=== PATIENT | male | born 1995 | race Caucasian/White ===

== ENCOUNTER 2020-11-29 22:47 | Emergency (ER) | payer OTHER, SELFPAY ==
[2020-11-29 23:16] VITALS: BP 106/73; PULSE 95; RESP 18; TEMP 37.9; O2SAT 96; BMI 34.7
--- NOTE | 2020-11-29 23:32 | ED_ITS ---
HPI - General Adult General Chief complaint: General Medical Stated complaint: flu like Time Seen by Provider: 11/29/20 23:09 Source: patient Mode of arrival: ambulatory Limitations: no limitations History of Present Illness HPI narrative: Patient comes to emergency room complaining of pain with urination, suprapubic pain. Patient states he has not seen any blood in the urine, complaining of chills and diffuse body aches. Patient denies back pain or flank pain, no nausea vomiting or diarrhea complaint: Suprapubic pain, dysuria Related Data Previous Rx's Medication Instructions Recorded phenazopyridine 100 mg PO TID 3 Days #9 tab 11/30/20 Allergies Allergy/AdvReac Type Severity Reaction Status Date / Time No Known Allergies Allergy Unverified 07/20/20 16:25 [No Known Allergies*] Review of Systems Review of Systems: Constitutional : Patient complaining of myalgias, chills ENT/Mouth : No Hearing loss, No Ear Pain, No Nasal Congestion, No Sinus Pain, No Hoarseness, No sore throat, No Rhinorrhea, No Swallowing Difficulty Eyes: No Eye Pain, No Swelling, No Redness, No Foreign Body, No Discharge, No Vision Changes Cardiovascular : No Chest Pain, No SOB, No Dyspnea on Exertion, No Orthopnea, No Edema, No Palpitations Respiratory : No Cough, No Sputum, No Wheezing, No Smoke Exposure, No Dyspnea Gastrointestinal : No Nausea, No Vomiting, No Diarrhea, No Constipation, mild suprapubic pain, No Hematochezia, No Melena Genitourinary : Denies hematuria, complaining of dysuria Musculoskeletal : No joint pain, complaining of Myalgias, No Joint Swelling Skin : No Skin Lesions, No rash Neuro : No Weakness, No Numbness, No Paresthesias, No Loss of Consciousness, No Dizziness, No Headache Psych : No Anxiety/Panic, No Depression, No SI/HI/AH/VH, No Social Issues, Heme/Lymph: No Bruising, No Bleeding,No Lymphadenopathy Endocrine : No Polyuria, No Polydipsia, No Temperature Intolerance [facility] Past Medical History Medical History (Updated 11/30/20 @ 02:25 by Andria Diamond MD) No known health problems Social History Social History Advance Directives: No Physical Exam Vital Signs: Vital Signs: Last Vital Signs Temp 100.2 F 01/27/21 23:16 Pulse 95 11/29/20 23:16 Resp 18 11/29/20 23:16 BP 106/73 11/29/20 23:16 Pulse Ox 96 11/29/20 23:16 Body Mass Index 34.7 Course Course Course Narrative: Patient's urinalysis shows no UTI. Patient has an elevated white blood cell count, slightly raised from baseline of 12, patient has no respiratory symptoms, sepsis is not suspected. Patient states that he already had an appendectomy a few years ago. CT scan is unremarkable Gonorrhea and chlamydia PCR pending. ddx cystitis Patient states that he is monogamous with his , is not concerned for sexually transmitted diseases. Declined empiric treatment Medical Decision Making Lab Data Result diagrams: 11/29/20 23:59 11/29/20 23:59 Labs: Lab Results 11/29/20 11/29/20 11/29/20 Range/Units 23:59 23:59 Unknown WBC 14.4 H (4.8-10.8) X10*3/uL RBC 4.83 (4.60-5.80) X10*6/uL Hgb 13.4 L (14.0-18.0) g/dl Hct 41.1 L (42-52) % MCV 85.1 (80-98) fL MCH 27.7 (27.0-33.0) pg MCHC 32.6 (31.0-36.0) g/dl RDW 13.3 (11.0-16.0) % Plt Count 349 (160-400) X10*3/uL MPV 9.8 (9.4-12.4) fL Immature Gran % (Auto) 0.3 (0.0-0.4) % Neut % (Auto) 75.0 H (45-73) % Lymph % (Auto) 16.5 L (20-40) % [place] % (Auto) 7.6 (2-11) % Eos % (Auto) 0.1 (0-4) % Baso % (Auto) 0.5 (0-2) % Lymph # (Auto) 2.4 (1.2-4.9) X10*3/uL [place] # (Auto) 1.1 (0.1-1.2) X10*3/uL Eos # (Auto) 0.0 (0.0-0.4) X10*3/uL Baso # (Auto) 0.1 (0.0-0.2) X10*3/uL Abs Immat Gran (auto) 0.05 H (0.00-0.03) X10*3/uL Absolute Neuts (auto) 10.8 H (2.0-8.3) X10*3/uL Absolute Nucleated RBC 0.000 (0.0-0.012) X10*3/uL Nucleated RBC % (auto) 0.0 (0.0-0.2) /100WBC Sodium 138 (135-145) mmol/L Potassium 3.9 (3.3-5.1) mmol/l Chloride 102 (96-108) mmol/L Carbon Dioxide 24 (22-29) mmol/L Anion Gap 16 (12-20) BUN 11 (9-16) mg/dL Creatinine 0.80 (0.5-1.4) mg/dL Estim Creat Clear Calc 154.3 Estimated GFR > 60 Random Glucose 98 (60-115) mg/dL Calcium 8.8 (8.4-10.2) mg/dL Urine Color YELLOW Urine Appearance CLEAR Urine pH 6.0 (5.0-8.0) Ur Specific [place] 1.025 (1.005-1.025) Urine Protein NEG (NEG-TRACE) MG/DL Urine Glucose (UA) NEG (NEG) MG/DL Urine Ketones 5 (NEG) MG/DL Urine Blood NEG (NEG) Urine Nitrite NEG (NEG) Ur Leukocyte Esterase NEG (NEG) Imaging Data CT scan - abdomen: Radiologist's impression: FINDINGS: LUNG BASES: The visualized lung bases are unremarkable. LIVER, GALLBLADDER, AND BILIARY TREE: The liver is normal in size, shape, and attenuation. No focal hepatic lesion or biliary ductal dilatation is present. The gallbladder is unremarkable. PANCREAS: Unremarkable. SPLEEN: Unremarkable. ADRENAL GLANDS: Unremarkable. KIDNEYS AND URETERS: The kidneys are normal in size, shape, and attenuation. No hydronephrosis, hydroureter, or obstructing calculi seen. No perinephric stranding. BLADDER: Mildly distended and grossly unremarkable. GASTROINTESTINAL TRACT: The small and large bowel are unremarkable. Patient is status post appendectomy. No free fluid or free air is seen. ABDOMINAL WALL: No significant hernia is appreciated. Gynecomastia is noted. LYMPH NODES: Normal. VASCULAR: Unremarkable. PELVIC VISCERA: Unremarkable. OSSEOUS STRUCTURES: Unremarkable. CT/CT abdomen pelvis w con IMPRESSION: No acute findings identified in the abdomen/pelvis. Discharge Plan Discharge Clinical Impression: Acute suprapubic pain Patient Disposition: Home, Self-Care Instructions: Dysuria (ED) Additional Instructions: You were tested for COVID-19. Please wait for your results until your return to work. If positive, you need to quarantine for 14 days. Please follow-up with your primary care physician tomorrow. If you have any worsening or new s ymptoms, please return to the emergency room or call 911 Prescriptions: New phenazopyridine 100 mg tablet 100 mg PO TID 3 Days Qty: 9 RF: 0 Stand Alone Forms: Work/School Release
[2020-11-30 00:05] LABS: MANUAL DIFF FLAG NO
[2020-11-30] MEDS: Acetaminophen 325 MG TABLET 650 MG PO (00:08)
[2020-11-30 00:09] LABS: Glucose Urine UA NEG (NEG); Leukocyte Esterase Urine NEG (NEG); Nitrite Urine NEG (NEG); Specific Gravity - Urine 1.025 (1.005-1.025); Urine Blood NEG (NEG); Urine Ketones 5 MG/DL (NEG); Urine Protein NEG (NEG-TRACE)
[2020-11-30 00:09] LABS: Basophils Absolute Auto 0.1 X10*3/uL (0.0-0.2); Basophils Percent Auto 0.5 % (0-2); Eosinophils Percent Auto 0.1 % (0-4); Hematocrit 41.1 % (42-52); Hemoglobin 13.4 g/dl (14.0-18.0); Imm Gran Abs Auto 0.05 X10*3/uL (0.00-0.03); Imm Gran Pct Auto 0.3 % (0.0-0.4); Lymphocytes Absolute Auto 2.4 X10*3/uL (1.2-4.9); Lymphocytes Percent Auto 16.5 % (20-40); Mean Corpuscular HGB Conc 32.6 g/dl (31.0-36.0); Mean Corpuscular Hemoglobin 27.7 pg (27.0-33.0); Mean Corpuscular Volume 85.1 fL (80-98); Mean Platelet Volume 9.8 fL (9.4-12.4); Monocytes Absolute Auto 1.1 X10*3/uL (0.1-1.2); Monocytes Percent Auto 7.6 % (2-11); Neutrophils Absolute Auto 10.8 X10*3/uL (2.0-8.3); Platelet Count 349 X10*3/uL (160-400); Red Blood Count 4.83 X10*6/uL (4.60-5.80); Red Cell Distribution Width 13.3 % (11.0-16.0); White Blood Count 14.4 X10*3/uL (4.8-10.8)
[2020-11-30 00:11] LABS: Appearance Urine CLEAR; Color Urine YELLOW
--- NOTE | 2020-11-30 00:33 | CT_ITS ---
EXAMINATION: CT ABDOMEN AND PELVIS WITH CONTRAST CLINICAL INFORMATION: Suprapubic pain COMPARISON: 05/11/2020 TECHNIQUE: Multidetector volumetric images were obtained from the superior aspect of the liver through the pubic symphysis following administration 85 mL of Omnipaque 350 intravenous contrast. Sagittal and coronal reformatted images were obtained on the technologist's workstation. Oral contrast: No This CT examination was performed using dose optimization techniques as appropriate, variously including the following: *Automated exposure control *Adjustment of mA and/or kV according to patient size (this includes techniques or standardized protocols for targeted exams where dose is matched to indication/reason for exam; i.e. extremities or head) *Use of iterative reconstruction technique DLP: 806 mGy-cm FINDINGS: LUNG BASES: The visualized lung bases are unremarkable. LIVER, GALLBLADDER, AND BILIARY TREE: The liver is normal in size, shape, and attenuation. No focal hepatic lesion or biliary ductal dilatation is present. The gallbladder is unremarkable. PANCREAS: Unremarkable. SPLEEN: Unremarkable. ADRENAL GLANDS: Unremarkable. KIDNEYS AND URETERS: The kidneys are normal in size, shape, and attenuation. No hydronephrosis, hydroureter, or obstructing calculi seen. No perinephric stranding. BLADDER: Mildly distended and grossly unremarkable. GASTROINTESTINAL TRACT: The small and large bowel are unremarkable. Patient is status post appendectomy. No free fluid or free air is seen. ABDOMINAL WALL: No significant hernia is appreciated. Gynecomastia is noted. LYMPH NODES: Normal. VASCULAR: Unremarkable. PELVIC VISCERA: Unremarkable. OSSEOUS STRUCTURES: Unremarkable. CT/CT abdomen pelvis w con IMPRESSION: No acute findings identified in the abdomen/pelvis.
[2020-11-30 00:39] LABS: Anion Gap 16 (12-20); Blood Urea Nitrogen 11 mg/dL (9-16); Calcium 8.8 mg/dL (8.4-10.2); Carbon Dioxide 24 mmol/L (22-29); Chloride 102 mmol/L (96-108); Creatinine Clr Calc Pharmacy 154.3; Estimated Glomerular Filt Rate > 60; Glucose Random 98 mg/dL (60-115); Potassium 3.9 mmol/l (3.3-5.1); Sodium 138 mmol/L (135-145)
[2020-11-30 02:00] VITALS: BP 121/75; PULSE 73; RESP 16; TEMP 37; O2SAT 96
[2020-11-30] MEDS: iohexoL 350 MG/ML 100 ML INFUS..BTL 85 ML IV (02:09)
[2020-11-30 03:47] LABS: Influenza A PCR NEGATIVE (Negative); Influenza B PCR NEGATIVE (Negative); Resp Syncy Virus RNA Qual PCR NEGATIVE (Negative); SARS COV2 PCR INHOUSE NEGATIVE (Negative)
[2020-12-02 01:57] LABS: C. trachomatis RNA TMA NOT DETECTED (NOT DETECTED); N. gonorrhoeae RNA TMA NOT DETECTED (NOT DETECTED)
== END 2020-11-30 03:07 | disposition home or self-care (01) ==
PROVIDERS: Emergency Provider Emergency Medicine
DX: R30.0 Dysuria (principal); R10.2 Pelvic and perineal pain; Z79.899 Other long term (current) drug therapy; Z20.822 Contact with and (suspected) exposure to COVID-19
CPT/HCPCS: 0241U; 36415; 74177; 80048; 81003; 85025; 87491; 87591; 99284; Q9967

== ENCOUNTER 2021-10-05 06:27 | Emergency (ER) | payer OTHER, SELFPAY ==
--- NOTE | ~2021-10-05 | XR_ITS ---
EXAMINATION: XR ANKLE, RIGHT CLINICAL INFORMATION: Rolled ankle with lateral malleolar pain and swelling. COMPARISON: None TECHNIQUE: AP, lateral, and mortise views of the right ankle. FINDINGS: There is mild lateral malleolar soft tissue swelling. No visible acute fracture, dislocation or subluxation seen. The ankle mortise and subtalar joints are normal. XR/XR ankle RT min 3V IMPRESSION: Unremarkable right ankle exam.
[2021-10-05 07:15] VITALS: BP 117/72; PULSE 74; RESP 18; TEMP 36.6; O2SAT 94
[2021-10-05 07:19] VITALS: BP 117/72; PULSE 74; RESP 18; TEMP 37.1; O2SAT 94; BMI 32.3
--- NOTE | 2021-10-05 07:20 | ED_ITS ---
HPI - Extremity Injury (Lower) General Chief Complaint: Extremity Injury, Lower Stated Complaint: Ankle inj Time Seen by Provider: 10/05/21 07:20 Source: patient Mode of arrival: ambulatory Limitations: no limitations History of Present Illness HPI Narrative: One hour ago patient rolled his ankle complaint: ankle injury Onset (ago): minute(s) Injury: Right: ankle Place: home Severity: mild Associated symptoms: snap/pop sensation Related Data Previous Rx's Medication Instructions Recorded phenazopyridine 100 mg tablet 100 mg PO TID 3 Days #9 tab 11/30/20 Allergies Allergy/AdvReac Type Severity Reaction Status Date / Time No Known Allergies Allergy Unverified 07/20/20 16:25 [No Known Allergies*] Review of Systems Constitutional: Constitutional: Reports no additional constitutional complaints Eyes: Eyes: Reports no additional eye complaints ENT: Denies dizziness Cardiovascular: Cardiovascular: Reports no additional cardiovascular complaints Respiratory: Respiratory: Reports as per HPI Gastrointestinal: Gastrointestinal: Reports no additional gastrointestinal complaints Musculoskeletal: Musculoskeletal: Reports no additional musculoskeletal complaints Integumentary/Breasts: Skin/Breast: Denies rash Neurologic: Reports system reviewed and no additional complaints, except as documented, Denies dizziness and Denies Sensory deficit (Neuro) Psychiatric: Psychiatric: Denies anxiety [facility] Past Medical History Medical History (Updated 10/05/21 @ 08:23 by Fabio Bianchi MD) No known health problems Social History Social History Advance Directives: No Physical Exam Vital Signs: Vital Signs: Last Vital Signs Temp 98.7 F 10/05/21 07:19 Pulse 74 10/05/21 07:19 Resp 18 10/05/21 07:19 BP 117/72 10/05/21 07:19 Pulse Ox 94 10/05/21 07:19 BMI result Body Mass Index 32.3 Const: General: healthy appearing Nutritional Appearance: average body habitus Orientation/consciousness: oriented to person and patient oriented x3 Limitations: no limitations HENMT: Head: Yes normal to inspection Ears: external ears normal General nose exam: Normal external nose present Mouth: Normal oral and palatal mucosa present and oropharynx normal Throat: Yes posterior oropharynx normal Eyes: General: appearance normal, both eyes and all related structures Neck: Other: supple Neck: Yes normal visual inspection Chest: Chest palpation & inspection: normal inspection of the chest Resp: Auscultation: clear to auscultation bilaterally Cardio: Jugular venous distension: no JVD Rate: regular rate Rhythm: regular rhythm Heart sounds: S1 normal heart sound present and S2 normal heart sound present GI: Inspection: Yes normal to inspection Palpation (GI): Soft to palpation, nontender and No hepatosplenomegaly present Auscultation: normal bowel sounds : General: Yes no CVA tenderness Back/Spine/Pelvis: Back: no CVA tenderness Skin: General skin exam: no rashes or lesions noted Neuro: General: oriented to person and patient oriented x3 Cranial nerves: Yes CN's II-XII intact bilaterally Motor exam (neuro): 5/5 motor strength present throughout Sensory Exam: No Sensory deficit (Neuro) Extrem: Other: right lateral malleolus with swelling, pain and ecchymosis. Good DP pulses Psych: Appearance: grossly normal Course Reevaluation(s) Reevaluation #1: no fracture will apply air splint Time: 08:21 Discharge Plan Discharge Clinical Impression: Ankle sprain and strain Patient Disposition: Home, Self-Care Instructions: Ankle Sprain (ED) Additional Instructions: ice 20 minutes on and off, tylenol or motrin for pain Prescriptions: No Action phenazopyridine 100 mg tablet 100 mg PO TID 3 Days Qty: 9 RF: 0 Referrals: Physician,None [Primary Care Provider] - 10 days
== END 2021-10-05 08:32 | disposition home or self-care (01) ==
PROVIDERS: Emergency Provider Emergency Medicine
DX: S93.401A Sprain of unspecified ligament of right ankle, initial encounter (principal); S96.911A Strain of unspecified muscle and tendon at ankle and foot level, right foot, initial encounter; X58.XXXA Exposure to other specified factors, initial encounter; Y93.9 Activity, unspecified; Y92.9 Unspecified place or not applicable; Y99.9 Unspecified external cause status
CPT/HCPCS: 73610; 99283

== ENCOUNTER 2022-06-08 11:52 | Emergency (ER) | payer BC, SELFPAY ==
[2022-06-08 11:55] VITALS: BP 119/72; PULSE 85; RESP 14; TEMP 36.8; O2SAT 96; BMI 33.5
--- NOTE | 2022-06-08 13:24 | ED.GENADULT ---
HPI - General Adult General Chief complaint: Skin/Abscess/Foreign Body Stated complaint: ? L Leg Cellulitis Time Seen by Provider: 06/08/22 13:20 History of Present Illness HPI narrative: Patient complains of left foot redness and pain, he did get bitten by some insect several days ago and the left foot has become increasingly red and painful Related Data Previous Rx's Medication Instructions Recorded phenazopyridine 100 mg tablet 100 mg PO TID 3 days #9 tabs 11/30/20 cephalexin 500 mg tablet 500 mg PO QID 7 days #28 tabs 06/08/22 Allergies Allergy/AdvReac Type Severity Reaction Status Date / Time No Known Allergies Allergy Unverified 07/20/20 16:25 [No Known Allergies*] Review of Systems Review of Systems: Positive for left foot redness and pain Negative no fever no chills no dizziness no weakness no fainting no feeling faint no headache no neck pain no chest pain no shortness of breath no abdominal pain no nausea or vomiting no other rash no joint swelling no difficulty ambulating no numbness weakness or tingling Yes all other systems are reviewed and are negative PMFSH Past Medical History Source: nursing notes reviewed Medical History (Updated 06/08/22 @ 14:06 by RANDY Wahl) No known health problems Social History Social History Advance Directives: No Advance Directives Information Provided: No Physical Exam ED Vital Signs: Vital Signs - 24 hr 06/08/22 11:55 Temperature 98.2 F Pulse Rate 85 Respiratory Rate 14 Blood Pressure 119/72 Pulse Oximetry 96 Oxygen Delivery Method Room Air BMI result Body Mass Index 33.5 General appearance no acute distress Head is normocephalic atraumatic Neck is supple Respiratory no distress Extremities full range of motion x4 Left leg exam the dorsal left foot and ankle are read with mild swelling but no fluctuance, there is no obvious wound or break in the skin there is no discharge there is full range of motion in the ankle the foot and the toes, patient can walk with a mild limp, neurovascular intact distal with good sensation and all motor function normal Other extremities normal Skin no other rashes Neuro no focal motor sensory deficits Course Course Course Narrative: Patient with cellulitis of the dorsum of his foot is treated with Keflex given a tetanus shot as he attributes that to insect bites, a white count of 12.9 was noted but sepsis very unlikely as vitals are normal and patient is otherwise well-appearing with no evidence of joint infection or systemic disease Medical Decision Making Lab Data Result diagrams: 06/08/22 13:23 06/08/22 13:23 Labs: Lab Results 06/08/22 06/08/22 Range/Units 13:23 13:23 WBC 12.5 H (4.8-10.8) X10*3/uL RBC 4.82 (4.60-5.80) X10*6/uL Hgb 13.3 L (14.0-18.0) g/dl Hct 41.3 L (42.0-52.0) % MCV 85.7 (80.0-98.0) fL MCH 27.6 (27.0-33.0) pg MCHC 32.2 (31.0-36.0) g/dl RDW 13.0 (11.0-16.0) % Plt Count 343 (160-400) X10*3/uL MPV 9.7 (9.4-12.4) fL Immature Gran % (Auto) 0.3 (0.0-0.4) % Neut % (Auto) 69.6 (45-73) % Lymph % (Auto) 17.3 L (20-40) % [place] % (Auto) 11.0 (2-11) % Eos % (Auto) 1.2 (0-4) % Baso % (Auto) 0.6 (0-2) % Lymph # (Auto) 2.2 (1.2-4.9) X10*3/uL [place] # (Auto) 1.4 H (0.1-1.2) X10*3/uL Eos # (Auto) 0.2 (0.0-0.4) X10*3/uL Baso # (Auto) 0.1 (0.0-0.2) X10*3/uL Abs Immat Gran (auto) 0.04 H (0.00-0.03) X10*3/uL Absolute Neuts (auto) 8.7 H (2.0-8.3) x10*3/uL Absolute Nucleated RBC 0.000 (0.0-0.012) X10*3/uL Nucleated RBC % (auto) 0.0 (0.0-0.2) /100WBC Sodium 140 (135-145) mmol/L Potassium 4.1 (3.3-5.1) mmol/L Chloride 104 (96-108) mmol/L Carbon Dioxide 26 (22-29) mmol/L Anion Gap 14 (12-20) BUN 9 (9-16) mg/dL Creatinine 0.73 (0.5-1.4) mg/dL Estim Creat Clear Calc 164.8 Estimated GFR > 60 Random Glucose 95 (60-115) mg/dL Calcium 8.8 (8.4-10.2) mg/dL Total Bilirubin 0.7 (0.0-1.0) mg/dL AST 16 (5-37) U/L ALT 14 (0-40) U/L Alkaline Phosphatase 71 (39-117) U/L Total Protein 8.0 (6.5-8.0) g/dL Albumin 4.2 (3.5-5.0) g/dL Discharge Plan Discharge Clinical Impression: Cellulitis Patient Disposition: Home, Self-Care Additional Instructions: We are treating with Keflex antibiotic for a skin infection on her left foot It should have improvement with in 2-3 days Return to the ER in 2-3 days if not improved Return to the ER any time for spreading redness, worse pain and swelling, fever, any sign of spreading infection or any worse condition or concerns You got a tetanus shot today Prescriptions: New cephalexin 500 mg tablet 500 mg PO QID 7 Days Qty: 28 0RF No Action phenazopyridine 100 mg tablet 100 mg PO TID 3 Days Qty: 9 0RF
[2022-06-08 13:28] LABS: MANUAL DIFF FLAG NO
[2022-06-08 13:29] LABS: Basophils Absolute Auto 0.1 X10*3/uL (0.0-0.2); Basophils Percent Auto 0.6 % (0-2); Eosinophils Absolute Auto 0.2 X10*3/uL (0.0-0.4); Eosinophils Percent Auto 1.2 % (0-4); Hematocrit 41.3 % (42.0-52.0); Hemoglobin 13.3 g/dl (14.0-18.0); Imm Gran Abs Auto 0.04 X10*3/uL (0.00-0.03); Imm Gran Pct Auto 0.3 % (0.0-0.4); Lymphocytes Absolute Auto 2.2 X10*3/uL (1.2-4.9); Lymphocytes Percent Auto 17.3 % (20-40); Mean Corpuscular HGB Conc 32.2 g/dl (31.0-36.0); Mean Corpuscular Hemoglobin 27.6 pg (27.0-33.0); Mean Corpuscular Volume 85.7 fL (80.0-98.0); Mean Platelet Volume 9.7 fL (9.4-12.4); Monocytes Absolute Auto 1.4 X10*3/uL (0.1-1.2); Neutrophils Absolute Auto 8.7 x10*3/uL (2.0-8.3); Neutrophils Percent Auto 69.6 % (45-73); Platelet Count 343 X10*3/uL (160-400); Red Blood Count 4.82 X10*6/uL (4.60-5.80); White Blood Count 12.5 X10*3/uL (4.8-10.8)
[2022-06-08] MEDS: Diphth,Pertus(ACell),Tet Adult 0.5 ML SYRINGE IM (13:34)
[2022-06-08] MEDS: cephALEXin 500 MG CAPSULE PO (13:34)
[2022-06-08 13:47] LABS: Alanine Aminotransferase 14 U/L (0-40); Albumin Level 4.2 g/dL (3.5-5.0); Alkaline Phosphatase 71 U/L (39-117); Anion Gap 14 (12-20); Aspartate Amino Transferase 16 U/L (5-37); Bilirubin Total 0.7 mg/dL (0.0-1.0); Blood Urea Nitrogen 9 mg/dL (9-16); Calcium 8.8 mg/dL (8.4-10.2); Carbon Dioxide 26 mmol/L (22-29); Chloride 104 mmol/L (96-108); Creatinine Clr Calc Pharmacy 164.8; Estimated Glomerular Filt Rate > 60; Glucose Random 95 mg/dL (60-115); Potassium 4.1 mmol/L (3.3-5.1); Sodium 140 mmol/L (135-145)
== END 2022-06-08 14:16 | disposition home or self-care (01) ==
PROVIDERS: Emergency Provider Emergency Medicine
DX: L03.116 Cellulitis of left lower limb (principal); M79.672 Pain in left foot
CPT/HCPCS: 36415; 80053; 85025; 90471; 90715; 96372; 99282; 99284

== ENCOUNTER 2022-06-11 17:55 | Emergency (ER) | payer BC, MEDICAID, SELFPAY ==
--- NOTE | ~2022-06-11 | XR_ITS ---
EXAMINATION: XR FOOT, LEFT CLINICAL INFORMATION: Pain COMPARISON: None TECHNIQUE: AP, lateral, and oblique views of the left foot. FINDINGS: There is swelling on the dorsum of the foot. Osseous structures appear unremarkable without evidence of fracture or dislocation XR/XR foot LT min 3V IMPRESSION: * Soft tissue swelling without osseous abnormality.
--- NOTE | ~2022-06-11 | US_ITS ---
EXAMINATION: US VENOUS ULTRASOUND WITH DOPPLER LOWER EXTREMITY, LEFT CLINICAL INFORMATION: Left lower extremity pain and swelling COMPARISON: None TECHNIQUE: Ultrasound of the deep veins is performed from the hip to the calf with compression sonography and color and pulse Doppler assessment. Spectral analysis with color-flow imaging is performed. FINDINGS: There is normal venous compression and respiratory variation and augmented flow. The visualized common femoral vein, superficial femoral vein, profunda femoral vein, popliteal vein, and the trifurcation region shows no evidence of deep venous thrombosis. There is no significant popliteal fossa cyst. Some normal-appearing left inguinal nodes are present the largest 1.5 cm. Ankle edema is present. The contralateral right common femoral vein appears normal. If the patient's symptoms persist, followup ultrasound in 5 days 7 days might be of value to exclude proximal propagation from a non-visualized calf vein. US/US venous duplex LE IMPRESSION: No DVT demonstrated in the left lower extremity.
[2022-06-11 19:44] VITALS: BP 105/71; PULSE 66; RESP 16; TEMP 36.8; O2SAT 98; BMI 33.4
[2022-06-11 20:03] LABS: MANUAL DIFF FLAG NO
[2022-06-11 20:05] LABS: Basophils Absolute Auto 0.1 X10*3/uL (0.0-0.2); Basophils Percent Auto 0.7 % (0-2); Eosinophils Absolute Auto 0.4 X10*3/uL (0.0-0.4); Eosinophils Percent Auto 3.5 % (0-4); Hematocrit 40.9 % (42.0-52.0); Hemoglobin 13.2 g/dl (14.0-18.0); Imm Gran Abs Auto 0.04 X10*3/uL (0.00-0.03); Imm Gran Pct Auto 0.4 % (0.0-0.4); Lymphocytes Absolute Auto 2.8 X10*3/uL (1.2-4.9); Lymphocytes Percent Auto 26.2 % (20-40); Mean Corpuscular HGB Conc 32.3 g/dl (31.0-36.0); Mean Corpuscular Hemoglobin 27.8 pg (27.0-33.0); Mean Corpuscular Volume 86.3 fL (80.0-98.0); Mean Platelet Volume 9.7 fL (9.4-12.4); Monocytes Absolute Auto 1.2 X10*3/uL (0.1-1.2); Monocytes Percent Auto 10.9 % (2-11); Neutrophils Absolute Auto 6.3 x10*3/uL (2.0-8.3); Neutrophils Percent Auto 58.3 % (45-73); Platelet Count 386 X10*3/uL (160-400); Red Blood Count 4.74 X10*6/uL (4.60-5.80); Red Cell Distribution Width 12.9 % (11.0-16.0); White Blood Count 10.8 X10*3/uL (4.8-10.8)
[2022-06-11 20:16] LABS: Lactic Acid 0.8 mmol/L (0.5-2.0)
[2022-06-11 20:20] LABS: Alanine Aminotransferase 23 U/L (0-40); Albumin Level 4.2 g/dL (3.5-5.0); Alkaline Phosphatase 85 U/L (39-117); Anion Gap 15 (12-20); Aspartate Amino Transferase 22 U/L (5-37); Bilirubin Total 0.3 mg/dL (0.0-1.0); Blood Urea Nitrogen 14 mg/dL (9-16); Calcium 9.1 mg/dL (8.4-10.2); Carbon Dioxide 27 mmol/L (22-29); Chloride 103 mmol/L (96-108); Estimated Glomerular Filt Rate > 60; Glucose Random 95 mg/dL (60-115); Sodium 141 mmol/L (135-145)
--- NOTE | 2022-06-11 22:41 | ED_ITS ---
HPI - Skin/Abscess/Foreign Bdy General Chief complaint: Extremity Problem Stated complaint: ? Left Foot Infection Time Seen by Provider: 06/11/22 22:20 Source: patient and old records reviewed Mode of arrival: ambulatory Limitations: no limitations History of Present Illness HPI narrative: 26 yo male no sig PMH notes he was camping in [facility] and had 3 mosquito bites on his left ankle/foot area - the foot swelled he was seen on 06/08 and started on cephalexin he now notes the foot is more swollen and itchy. There is no redness he has no fevers at home. MD complaint: insect bite/sting Onset (ago): day(s) (5) Tetanus up to date: yes Location: LLE and L foot Severity: mild Quality: dull, constant and pruritic Pain Consistency: constant Relieving factors: immobilization Exacerbating factors: palpation Context: recent camping (no tick bites, mosquito bites) Associated symptoms: other (leg swelling) Treatments prior to arrival: antibiotic Related Data Previous Rx's Medication Instructions Recorded phenazopyridine 100 mg tablet 100 mg PO TID 3 days #9 tabs 11/30/20 cephalexin 500 mg tablet 500 mg PO QID 7 days #28 tabs 06/08/22 doxycycline hyclate 100 mg tablet 100 mg PO BID 7 days #14 tabs 06/12/22 famotidine 20 mg tablet (Pepcid) 20 mg PO DAILY PRN abdominal 06/12/22 discomfort #30 tabs prednisone 20 mg tablet 40 mg PO DAILY 5 days #10 tabs 06/12/22 Allergies Allergy/AdvReac Type Severity Reaction Status Date / Time No Known Allergies Allergy Unverified 07/20/20 16:25 [No Known Allergies*] Review of Systems Review of Systems: Constitutional : No Fever, No Chills ENT/Mouth : No sore throat, No Rhinorrhea Eyes: No Eye Pain, No Swelling, No Redness Cardiovascular : No Chest Pain, No SOB Respiratory : No Cough, No Sputum Gastrointestinal : No Nausea, No Vomiting, No Diarrhea, No abdominal Pain Genitourinary : No Dysuria, No Hematuria Musculoskeletal : No joint pain, No Myalgias, No Joint Swelling Skin : No Skin Lesions, positive skin rash, pos leg and foot swelling Neuro : No Weakness, No Numbness, No Headache Psych : No Anxiety, No Depression Heme/Lymph: No Bruising, No Bleeding,No Lymphadenopathy Endocrine : No Polyuria, No Polydipsia All other systems reviewed and are negative [facility] Past Medical History Attestation statement: The following information was validated with the patient. Medical History No known health problems Social History Social History Alcohol intake: never Patient Tobacco Use Status: Never used Tobacco Use of substances other than those prescribed or required for medical reasons: No Advance Directives: No Advance Directives Information Provided: No Physical Exam Vital Signs: Vital Signs: Last Vital Signs Temp 98.7 F 06/12/22 00:00 Pulse 70 06/12/22 00:00 Resp 17 06/12/22 00:00 BP 102/75 06/12/22 00:00 Pulse Ox 96 06/12/22 00:00 O2 Del Method 06/12/22 00:00 BMI result Body Mass Index 33.4 Appearance: Alert. Oriented X3. No acute distress. Eyes: Pupils equal, round and reactive to light. ENT: Pharynx normal. Neck: Normal inspection. Neck supple. CVS: Normal heart rate and rhythm. Pulses normal. Respiratory: No respiratory distress. Breath sounds normal. Abdomen: Soft and nontender. Skin: Skin warm and dry. Normal skin color. Extremities: L foot and up to mid calf not red not hot but boggy and 2+ pitting edema ttp over dorsum of foot, ecchymosis noted, seems allergic not cellulitic to me, distal NV intact bounding pulses Neuro: Oriented X 3. No motor deficit. No sensory deficit. Course Course Course Narrative: negative workup stable for DC will place on doxy as well in case lymph node related to infection MDM - Skin/Abscess/Foreign Bdy MDM Narrative Medical decision making narrative: 26 yo male here with L foot pain and swelling post mosquito bites it looks more allergic not cellulitic with no WBC count no fevers no warmth no erythema given calf swelling will obtain DVT study and also xray to r/o occult fracture Lab Data Result diagrams: 06/11/22 19:52 06/11/22 19:52 Labs: Lab Results 06/11/22 06/11/22 06/11/22 Range/Units 19:52 19:52 19:52 WBC 10.8 (4.8-10.8) X10*3/uL RBC 4.74 (4.60-5.80) X10*6/uL Hgb 13.2 L (14.0-18.0) g/dl Hct 40.9 L (42.0-52.0) % MCV 86.3 (80.0-98.0) fL MCH 27.8 (27.0-33.0) pg MCHC 32.3 (31.0-36.0) g/dl RDW 12.9 (11.0-16.0) % Plt Count 386 (160-400) X10*3/uL MPV 9.7 (9.4-12.4) fL Immature Gran % (Auto) 0.4 (0.0-0.4) % Neut % (Auto) 58.3 (45-73) % Lymph % (Auto) 26.2 (20-40) % [place] % (Auto) 10.9 (2-11) % Eos % (Auto) 3.5 (0-4) % Baso % (Auto) 0.7 (0-2) % Lymph # (Auto) 2.8 (1.2-4.9) X10*3/uL [place] # (Auto) 1.2 (0.1-1.2) X10*3/uL Eos # (Auto) 0.4 (0.0-0.4) X10*3/uL Baso # (Auto) 0.1 (0.0-0.2) X10*3/uL Abs Immat Gran (auto) 0.04 H (0.00-0.03) X10*3/uL Absolute Neuts (auto) 6.3 (2.0-8.3) x10*3/uL Absolute Nucleated RBC 0.000 (0.0-0.012) X10*3/uL Nucleated RBC % (auto) 0.0 (0.0-0.2) /100WBC Sodium 141 (135-145) mmol/L Potassium 4.0 (3.3-5.1) mmol/L Chloride 103 (96-108) mmol/L Carbon Dioxide 27 (22-29) mmol/L Anion Gap 15 (12-20) BUN 14 D (9-16) mg/dL Creatinine 0.80 (0.5-1.4) mg/dL Estim Creat Clear Calc 150.0 Estimated GFR > 60 Random Glucose 95 (60-115) mg/dL Lactic Acid 0.8 (0.5-2.0) mmol/L Calcium 9.1 (8.4-10.2) mg/dL Total Bilirubin 0.3 (0.0-1.0) mg/dL AST 22 (5-37) U/L ALT 23 (0-40) U/L Alkaline Phosphatase 85 (39-117) U/L Total Protein 8.0 (6.5-8.0) g/dL Albumin 4.2 (3.5-5.0) g/dL Discharge Plan Discharge Clinical Impression: Insect bite Qualifiers: Encounter type: initial encounter Site of insect bite: foot Laterality: left Qualified Code(s): S90.862A - Insect bite (nonvenomous), left foot, initial encounter Patient Disposition: Home, Self-Care Instructions: General Allergic Reaction (ED) Additional Instructions: return to ED for any worsening symptoms or concerns elevate leg and wear a compressive soccer sock continue cephalexin while on prednisone and doxycycline take pepcid doxycycline can lead to sunburns be careful Prescriptions: New prednisone 20 mg tablet 40 mg PO DAILY 5 Days Qty: 10 0RF famotidine [Pepcid] 20 mg tablet 20 mg PO DAILY PRN (Reason: abdominal discomfort) Qty: 30 0RF doxycycline hyclate 100 mg tablet 100 mg PO BID 7 Days Qty: 14 0RF No Action phenazopyridine 100 mg tablet 100 mg PO TID 3 Days Qty: 9 0RF cephalexin 500 mg tablet 500 mg PO QID 7 Days Qty: 28 0RF
[2022-06-12] VITALS: BP 102/75; PULSE 70; RESP 17; TEMP 37.1; O2SAT 96
[2022-06-12] MEDS: predniSONE 20 MG TABLET 40 MG PO (00:19)
--- NOTE | 2022-06-12 00:35 | PC.NURSE ---
pt a&ox3, vss, medicated per provider order, pt reports wrong pharmacy on file, changed and corrected to [facility] on [facility].
== END 2022-06-12 00:36 | disposition home or self-care (01) ==
PROVIDERS: Emergency Provider Emergency Medicine
DX: S90.862A Insect bite (nonvenomous), left foot, initial encounter (principal); M79.605 Pain in left leg; W57.XXXA Bitten or stung by nonvenomous insect and other nonvenomous arthropods, initial encounter; Y93.9 Activity, unspecified; Y92.9 Unspecified place or not applicable; Y99.9 Unspecified external cause status
CPT/HCPCS: 36415; 73630; 80053; 83605; 85025; 87040; 93971; 99284

== ENCOUNTER 2022-09-07 12:16 | Emergency (ER) | payer BC, SELFPAY ==
[2022-09-07 12:50] VITALS: BP 98/68; PULSE 105; RESP 16; TEMP 36.7; O2SAT 97; BMI 33.9
[2022-09-07 13:53] LABS: MANUAL DIFF FLAG NO
[2022-09-07 13:56] LABS: Basophils Percent Auto 0.3 % (0-2); Eosinophils Absolute Auto 0.1 X10*3/uL (0.0-0.4); Eosinophils Percent Auto 0.6 % (0-4); Hematocrit 43.7 % (42.0-52.0); Hemoglobin 13.9 g/dl (14.0-18.0); Imm Gran Abs Auto 0.04 X10*3/uL (0.00-0.03); Imm Gran Pct Auto 0.3 % (0.0-0.4); Lymphocytes Absolute Auto 0.7 X10*3/uL (1.2-4.9); Lymphocytes Percent Auto 5.8 % (20-40); Mean Corpuscular HGB Conc 31.8 g/dl (31.0-36.0); Mean Corpuscular Hemoglobin 27.6 pg (27.0-33.0); Mean Corpuscular Volume 86.7 fL (80.0-98.0); Mean Platelet Volume 9.7 fL (9.4-12.4); Monocytes Percent Auto 8.9 % (2-11); Neutrophils Absolute Auto 9.8 x10*3/uL (2.0-8.3); Neutrophils Percent Auto 84.1 % (45-73); Platelet Count 343 X10*3/uL (160-400); Red Blood Count 5.04 X10*6/uL (4.60-5.80); Red Cell Distribution Width 13.5 % (11.0-16.0); White Blood Count 11.6 X10*3/uL (4.8-10.8)
[2022-09-07 14:11] LABS: Alanine Aminotransferase 31 U/L (0-40); Albumin Level 4.4 g/dL (3.5-5.0); Alkaline Phosphatase 77 U/L (39-117); Anion Gap 16 (12-20); Aspartate Amino Transferase 23 U/L (5-37); Bilirubin Total 0.6 mg/dL (0.0-1.0); Blood Urea Nitrogen 14 mg/dL (9-16); Calcium 9.3 mg/dL (8.4-10.2); Carbon Dioxide 25 mmol/L (22-29); Chloride 102 mmol/L (96-108); Creatinine Clr Calc Pharmacy 132.8; Estimated Glomerular Filt Rate > 60; Glucose Random 123 mg/dL (60-115); Lipase 10 U/L (8-78); Potassium 4.4 mmol/L (3.3-5.1); Sodium 139 mmol/L (135-145); Total Protein 8.2 g/dL (6.5-8.0)
[2022-09-07 17:16] VITALS: BP 107/75; PULSE 102; RESP 20; O2SAT 96
[2022-09-07 21:57] LABS: COVID-19 Test Negative (Negative); Influenza A Negative (Negative); Influenza B2 Negative (Negative)
--- NOTE | 2022-09-07 22:04 | ED_ITS ---
HPI - General Adult General Chief complaint: Nausea/Vomiting/Diarrhea Stated complaint: N/D/V Time Seen by Provider: 09/07/22 21:32 Source: patient Mode of arrival: ambulatory Limitations: no limitations History of Present Illness HPI narrative: 26 yold male presents to the ED for nasal congestion, headache, nausea, vomitting, fever, and diarrhea. patient denies any abdominal pain. Patient states her children were diagnosed with RSV. Patient states blood in diarrhea. Patient denies any recent hospitalization admission or new antibiotics. Related Data Previous Rx's Medication Instructions Recorded phenazopyridine 100 mg tablet 100 mg PO TID 3 days #9 tabs 11/30/20 cephalexin 500 mg tablet 500 mg PO QID 7 days #28 tabs 06/08/22 doxycycline hyclate 100 mg tablet 100 mg PO BID 7 days #14 tabs 06/12/22 famotidine 20 mg tablet (Pepcid) 20 mg PO DAILY PRN abdominal 06/12/22 discomfort #30 tabs prednisone 20 mg tablet 40 mg PO DAILY 5 days #10 tabs 06/12/22 Allergies Allergy/AdvReac Type Severity Reaction Status Date / Time No Known Allergies Allergy Unverified 07/20/20 16:25 [No Known Allergies*] Review of Systems Review of Systems: nasal congestion, headache, diarrhea, fever, nausea. no abdominal pain Yes all other systems are reviewed and are negative [facility] Past Medical History Medical History No known health problems Social History Social History Alcohol intake: never Patient Tobacco Use Status: Never used Tobacco Advance Directives: No Advance Directives Information Provided: No Physical Exam ED Vital Signs: Vital Signs - 24 hr 09/07/22 12:50 09/07/22 17:16 Temperature 98.1 F Pulse Rate 105 H 102 H Respiratory Rate 16 20 Blood Pressure 98/68 107/75 Pulse Oximetry 97 96 Oxygen Delivery Method Room Air BMI result Body Mass Index 33.9 Const General: cooperative, healthy appearing, comfortable, no acute distress, well developed, alert, awake and Physically active Orientation/consciousness: oriented to person, oriented to place, oriented to time and patient oriented x3 HENMT Head: Yes normal to inspection, Yes No palpable skull fracture present, Yes normocephalic, Yes atraumatic and No abrasion Ears: hearing grossly normal bilaterally, external ears normal, TM's normal bilaterally, EAC's normal, mastoids normal and no periauricular adenopathy Throat: Yes posterior oropharynx normal, Yes tonsils normal and Yes uvula midl ine Eyes General: appearance normal, both eyes and all related structures Neck Neck: Yes normal visual inspection, Yes full ROM, Yes no lymphadenopathy, Yes no meningeal signs, Yes trachea midline, Yes supple, No anterior neck swelling and No tender Chest Chest palpation & inspection: normal inspection of the chest and normal palpation of entire chest wall Resp Effort & Inspection: normal respiratory effort and able to speak in complete sentences Auscultation: clear to auscultation bilaterally Cardio Jugular venous distension: no JVD Heart sounds: S1 normal heart sound present and S2 normal heart sound present GI Inspection: Yes normal to inspection and No abdominal wall ecchymosis Palpation (GI): Soft to palpation, not firm, nontender, no guarding and not rigid General: No CVA tenderness and Yes no CVA tenderness Back/Spine/Pelvis Back: no CVA tenderness, No CVA tenderness and No back tenderness Skin General skin exam: no rashes or lesions noted, elasticity normal and turgor normal Neuro General: oriented to person, oriented to place, oriented to time, patient oriented x3, gait normal, tone normal, moves all extremities, Normal light touch and pain sensation, no meningeal signs, no focal motor deficits and CN's II-XI intact bilaterally Extrem General: Yes normal to inspection and Yes full ROM Psych Appearance: grossly normal, well kempt and not disheveled Course Course Course Narrative: [facility] Reevaluation(s) Reevaluation #1: CMP is normal. uA is normal. Covid and infleunza abbot is normalfe. UA is normal. SARS ordered. Patient will be car results present while since. Patient has no abdominal tenderness. No need for CT scan results. pATIENT WOULD LIKE TO BE CALLED WITH RESULTS FOR SARS. Time: 23:02 Reevaluation #2: Patient called and informed of positive RSV diagnosis Time: 13:24 Medical Decision Making Lab Data Result diagrams: 09/07/22 13:49 09/07/22 13:49 Labs: Lab Results 11/05/22 11/05/22 11/05/22 Range/Units 13:49 13:49 21:34 WBC 11.6 H (4.8-10.8) X10*3/uL RBC 5.04 (4.60-5.80) X10*6/uL Hgb 13.9 L (14.0-18.0) g/dl Hct 43.7 (42.0-52.0) % MCV 86.7 (80.0-98.0) fL MCH 27.6 (27.0-33.0) pg MCHC 31.8 (31.0-36.0) g/dl RDW 13.5 (11.0-16.0) % Plt Count 343 (160-400) X10*3/uL MPV 9.7 (9.4-12.4) fL Immature Gran % (Auto) 0.3 (0.0-0.4) % Neut % (Auto) 84.1 H (45-73) % Lymph % (Auto) 5.8 L (20-40) % [place] % (Auto) 8.9 (2-11) % Eos % (Auto) 0.6 (0-4) % Baso % (Auto) 0.3 (0-2) % Lymph # (Auto) 0.7 L (1.2-4.9) X10*3/uL [place] # (Auto) 1.0 (0.1-1.2) X10*3/uL Eos # (Auto) 0.1 (0.0-0.4) X10*3/uL Baso # (Auto) 0.0 (0.0-0.2) X10*3/uL Abs Immat Gran (auto) 0.04 H (0.00-0.03) X10*3/uL Absolute Neuts (auto) 9.8 H (2.0-8.3) x10*3/uL Absolute Nucleated RBC 0.000 (0.0-0.012) X10*3/uL Nucleated RBC % (auto) 0.0 (0.0-0.2) /100WBC Sodium 139 (135-145) mmol/L Potassium 4.4 (3.3-5.1) mmol/L Chloride 102 (96-108) mmol/L Carbon Dioxide 25 (22-29) mmol/L Anion Gap 16 (12-20) BUN 14 (9-16) mg/dL Creatinine 0.91 (0.5-1.4) mg/dL Estim Creat Clear Calc 132.8 Estimated GFR > 60 Random Glucose 123 H (60-115) mg/dL Calcium 9.3 (8.4-10.2) mg/dL Total Bilirubin 0.6 (0.0-1.0) mg/dL AST 23 (5-37) U/L ALT 31 (0-40) U/L Alkaline Phosphatase 77 (39-117) U/L Total Protein 8.2 H (6.5-8.0) g/dL Albumin 4.4 (3.5-5.0) g/dL Lipase 10 (8-78) U/L Urine Color Urine Appearance Urine pH (5.0-9.0) Ur Specific [place] (1.005-1.025) Urine Protein (Neg-Trace) mg/dL Urine Glucose (UA) (Negative) mg/dL Urine Ketones (Negative) mg/dL Urine Blood (Negative) Urine Nitrite (Negative) Ur Leukocyte Esterase (Negative) COVID-19 (SHAYNE) (Negative) COVID-19 Clin Com Influenza Type A (ANA) Negative (Negative) Influenza Type A (PCR) (Negative) Influenza Type B (ANA) Negative (Negative) Influenza Type B (PCR) (Negative) Influenza A & B Note See Note RSV RNA Qual (PCR) (Negative) SARS-CoV-2 RNA (RT-PCR) (Negative) 09/07/22 09/07/22 09/07/22 Range/Units 21:34 22:07 22:16 WBC (4.8-10.8) X10*3/uL RBC (4.60-5.80) X10*6/uL Hgb (14.0-18.0) g/dl Hct (42.0-52.0) % MCV (80.0-98.0) fL MCH (27.0-33.0) pg MCHC (31.0-36.0) g/dl RDW (11.0-16.0) % Plt Count (160-400) X10*3/uL MPV (9.4-12.4) fL Immature Gran % (Auto) (0.0-0.4) % Neut % (Auto) (45-73) % Lymph % (Auto) (20-40) % [place] % (Auto) (2-11) % Eos % (Auto) (0-4) % Baso % (Auto) (0-2) % Lymph # (Auto) (1.2-4.9) X10*3/uL [place] # (Auto) (0.1-1.2) X10*3/uL Eos # (Auto) (0.0-0.4) X10*3/uL Baso # (Auto) (0.0-0.2) X10*3/uL Abs Immat Gran (auto) (0.00-0.03) X10*3/uL Absolute Neuts (auto) (2.0-8.3) x10*3/uL Absolute Nucleated RBC (0.0-0.012) X10*3/uL Nucleated RBC % (auto) (0.0-0.2) /100WBC Sodium (135-145) mmol/L Potassium (3.3-5.1) mmol/L Chloride (96-108) mmol/L Carbon Dioxide (22-29) mmol/L Anion Gap (12-20) BUN (9-16) mg/dL Creatinine (0.5-1.4) mg/dL Estim Creat Clear Calc Estimated GFR Random Glucose (60-115) mg/dL Calcium (8.4-10.2) mg/dL Total Bilirubin (0.0-1.0) mg/dL AST (5-37) U/L ALT (0-40) U/L Alkaline Phosphatase (39-117) U/L Total Protein (6.5-8.0) g/dL Albumin (3.5-5.0) g/dL Lipase (8-78) U/L Urine Color Dark Yellow Urine Appearance Clear Urine pH 5.5 (5.0-9.0) Ur Specific [place] >= 1.030 H (1.005-1.025) Urine Protein Trace (Neg-Trace) mg/dL Urine Glucose (UA) Negative (Negative) mg/dL Urine Ketones Negative (Negative) mg/dL Urine Blood Negative (Negative) Urine Nitrite Negative (Negative) Ur Leukocyte Esterase Negative (Negative) COVID-19 (SHAYNE) Negative (Negative) COVID-19 Clin Com See Note Influenza Type A (ANA) (Negative) Influenza Type A (PCR) NEGATIVE (Negative) Influenza Type B (ANA) (Negative) Influenza Type B (PCR) NEGATIVE (Negative) Influenza A & B Note RSV RNA Qual (PCR) POSITIVE A (Negative) SARS-CoV-2 RNA (RT-PCR) NEGATIVE (Negative) Discharge Plan Discharge Clinical Impression: Gastroenteritis, Acute viral syndrome Patient Disposition: Home, Self-Care Instructions: Gastroenteritis (ED), Viral Syndrome (ED) Additional Instructions: Recommend oral hydration and rest. Drink plenty of fluids. Return to ED for any abdominal pain, blood in stool, intractable fever, weakness, trouble nausea, inability to tolerate solid foods/liquids, dysuria, hematuria, or any other concerning symptoms. Please follow-up primary care provider Prescriptions: No Action phenazopyridine 100 mg tablet 100 mg PO TID 3 Days Qty: 9 0RF cephalexin 500 mg tablet 500 mg PO QID 7 Days Qty: 28 0RF prednisone 20 mg tablet 40 mg PO DAILY 5 Days Qty: 10 0RF famotidine [Pepcid] 20 mg tablet 20 mg PO DAILY PRN (Reason: abdominal discomfort) Qty: 30 0RF doxycycline hyclate 100 mg tablet 100 mg PO BID 7 Days Qty: 14 0RF Stand Alone Forms: Work/School Release Interventions: ED Discharge Assessment Last Done: 09/07/22 23:09 Discharge Date/Time: 09/07/22 23:10 Print Language: Bengali
[2022-09-07 22:28] LABS: Appearance Urine Clear; Color Urine Dark Yellow; Glucose Urine UA Negative (Negative); Leukocyte Esterase Urine Negative (Negative); Nitrite Urine Negative (Negative); PH 5.5 (5.0-9.0); Specific Gravity - Urine >= 1.030 (1.005-1.025); Urine Blood Negative (Negative); Urine Ketones Negative (Negative); Urine Protein Trace mg/dL (Neg-Trace)
[2022-09-07 22:59] LABS: Influenza A PCR NEGATIVE (Negative); Influenza B PCR NEGATIVE (Negative); Resp Syncy Virus RNA Qual PCR POSITIVE (Negative); SARS COV2 PCR INHOUSE NEGATIVE (Negative)
== END 2022-09-07 23:10 | disposition home or self-care (01) ==
PROVIDERS: Physician Assistant; Emergency Provider Student in an Organized Health Care Education/Training Program
DX: K52.9 Noninfective gastroenteritis and colitis, unspecified (principal); B97.4 Respiratory syncytial virus as the cause of diseases classified elsewhere; R11.2 Nausea with vomiting, unspecified; Z20.822 Contact with and (suspected) exposure to COVID-19
CPT/HCPCS: 0241U; 36415; 80053; 81003; 83690; 85025; 87502; 87635; 99282; 99283

== ENCOUNTER 2022-09-17 13:47 | Emergency (ER) | payer BC, SELFPAY ==
--- NOTE | ~2022-09-17 | XR_ITS ---
EXAMINATION: XR CHEST CLINICAL INFORMATION: Cough with body ache COMPARISON: None TECHNIQUE: Frontal view of the chest was obtained. FINDINGS: Lungs are hypoexpanded. Otherwise, no significant abnormality is noted involving the heart, lungs, mediastinum, bony thorax or soft tissues. XR/XR chest 1V IMPRESSION: Unremarkable examination.
[2022-09-17 16:00] VITALS: BP 116/87; PULSE 86; RESP 20; TEMP 36.6; O2SAT 97; BMI 34.0
--- NOTE | 2022-09-17 16:03 | ED_ITS ---
HPI - URI/Sore Throat General Chief Complaint: Upper Respiratory Symptoms Stated Complaint: Flu Like Symptoms Time Seen by Provider: 09/17/22 17:59 Source: patient Mode of arrival: ambulatory Limitations: no limitations History of Present Illness HPI Narrative: 26-year-old male came in for evaluation of upper respiratory infection, patient recently was diagnosed with RSV, septum still lingering with no complete r esolution, patient is negative for RSV/flu/COVID and vital signs stable. Related Data Previous Rx's Medication Instructions Recorded phenazopyridine 100 mg tablet 100 mg PO TID 3 days #9 tabs 11/30/20 cephalexin 500 mg tablet 500 mg PO QID 7 days #28 tabs 06/08/22 doxycycline hyclate 100 mg tablet 100 mg PO BID 7 days #14 tabs 06/12/22 famotidine 20 mg tablet (Pepcid) 20 mg PO DAILY PRN abdominal 06/12/22 discomfort #30 tabs prednisone 20 mg tablet 40 mg PO DAILY 5 days #10 tabs 06/12/22 Allergies Allergy/AdvReac Type Severity Reaction Status Date / Time No Known Allergies Allergy Unverified 07/20/20 16:25 [No Known Allergies*] Review of Systems Review of Systems: All other systems are reviewed and are negative Constitutional: Reports as per HPI and Reports no additional constitutional complaints Eyes: Reports as per HPI and Reports no additional eye complaints Reports system reviewed and no additional complaints, except as documented Cardiovascular: Reports as per HPI and Reports no additional cardiovascular complaints Respiratory: Reports as per HPI and Reports no additional respiratory complaints Gastrointestinal: Reports as per HPI and Reports no additional gastrointestinal complaints Genitourinary: Reports no additional female genitourinary complaints Musculoskeletal: Reports no additional musculoskeletal complaints Skin/Breast: Reports system reviewed and no additional complaints, except as docu Psychiatric: Reports no additional psychiatric complaints Endocrine: Reports no additional endocrine complaints Hematologic/Lymphatic: Reports no additional hematologic/lymphatic complaints Allergic/Immunologic: Reports no additional allergic/immunologic complaints Reports system reviewed and no additional complaints, except as documented and Reports Abnormal speech present [facility] Past Medical History Medical History No known health problems Social History Social History Alcohol intake: never Patient Tobacco Use Status: Never used Tobacco Advance Directives: No Advance Directives Information Provided: No Physical Exam Vital Signs: Vital Signs: Last Vital Signs Temp 97.9 F 09/17/22 16:00 Pulse 86 09/17/22 16:00 Resp 20 09/17/22 16:00 BP 116/87 09/17/22 16:00 Pulse Ox 97 09/17/22 16:00 O2 Del Method 09/17/22 16:00 BMI result Body Mass Index 34.0 Vital signs have been reviewed as appeared to be correct. Blood pressure normal. Heart rate normal. Respiration rate normal. Temperature normal. Oxygen saturation normal. Appearance: Alert. Oriented X3. No acute distress. Head: Normal external exam. Normocephalic. Atraumatic. No Petersen signs noted. No raccoon eyes noted Eyes: PERRLA. EOMI. Conjunctiva and sclera normal. Eyelids normal. ENT: TM's Normal. Pharynx normal. Uvula midline. Moist mucous membranes. No trismus noted. No drooling noted. No muffled voice noted. Neck: Normal inspection. Neck supple. FROM. No adenopathy. Thyroid Normal. No meningeal signs. No neck mass noted. CVS: Normal heart rate and rhythm. Heart sound normal. No murmurs noted. Pulses normal throughout. Respiratory: No respiratory distress. Painless inspiration. Breath sounds normal. No wheezes/rales/rhonchi noted. Chest nontender. No accessory muscle usage noted or decreased air movement noted. Abdomen: Soft and nontender. Bowel sounds normal in all 4 quadrants. No distention noted. No organomegaly noted. No visible injury noted. Back: No CVA tenderness. Full range of motion noted. Skin: Skin warm and dry. Normal skin color. Normal skin turgor. No rashes/lesions/lacerations noted. Extremities: No lower extremity edema. Extremities exhibit normal range of motion. Extremities nontender. Neuro: Oriented X 3. Cranial nerve exam: II-XII are grossly intact No motor deficit. No sensory deficit. Reflexes normal. Course Reevaluation(s) Reevaluation #1: 26-year-old male came in with upper respiratory symptom variegated, runny nose, coughing, subjective fever and chills, patient is positive for RSV last week felt better for 2 days then started to have same symptoms. Patient is negative for RSV/flu/COVID. Chest x-ray is unremarkable. Time: 16:03 MDM - URI/Sore Throat Lab Data Attestation: I reviewed the patient's lab results. Labs: Lab Results 09/17/22 Range/Units 16:04 Influenza Type A (PCR) NEGATIVE (Negative) Influenza Type B (PCR) NEGATIVE (Negative) RSV RNA Qual (PCR) NEGATIVE (Negative) SARS-CoV-2 RNA (RT-PCR) NEGATIVE (Negative) Imaging Data Chest x-ray: Attestation: I personally reviewed and interpreted this imaging study as follows: Radiologist's impression: No acute pathology. Discharge Plan Discharge Clinical Impression: Upper respiratory infection Patient Disposition: Home, Self-Care Instructions: Viral Syndrome (ED) Prescriptions: No Action phenazopyridine 100 mg tablet 100 mg PO TID 3 Days Qty: 9 0RF cephalexin 500 mg tablet 500 mg PO QID 7 Days Qty: 28 0RF prednisone 20 mg tablet 40 mg PO DAILY 5 Days Qty: 10 0RF famotidine [Pepcid] 20 mg tablet 20 mg PO DAILY PRN (Reason: abdominal discomfort) Qty: 30 0RF doxycycline hyclate 100 mg tablet 100 mg PO BID 7 Days Qty: 14 0RF Referrals: Physician,None [Primary Care Provider] - Stand Alone Forms: Work/School Release
[2022-09-17 17:13] LABS: Influenza A PCR NEGATIVE (Negative); Influenza B PCR NEGATIVE (Negative); Resp Syncy Virus RNA Qual PCR NEGATIVE (Negative); SARS COV2 PCR INHOUSE NEGATIVE (Negative)
== END 2022-09-17 18:40 | disposition home or self-care (01) ==
PROVIDERS: Emergency Provider Emergency Medicine
DX: J06.9 Acute upper respiratory infection, unspecified (principal); R50.9 Fever, unspecified; R05.9 Cough, unspecified; Z20.822 Contact with and (suspected) exposure to COVID-19
CPT/HCPCS: 0241U; 71045; 99282; 99283

== ENCOUNTER 2023-07-05 04:33 | Emergency (ER) | payer OTHER, SELFPAY ==
[2023-07-05 04:43] VITALS: BP 106/66; PULSE 104; RESP 18; TEMP 38.7; O2SAT 94; BMI 34.7
--- NOTE | 2023-07-05 04:52 | ED.GENADULT ---
HPI - General Adult General Chief complaint: General Medical Stated complaint: Flu symptoms, body aches Time Seen by Provider: 07/05/23 04:54 Source: patient Mode of arrival: ambulatory Limitations: no limitations History of Present Illness HPI narrative: Patient comes to the emergency room complaining of a sore throat since yesterday. Patient states that he has been having night sweats, took ibuprofen earlier today due to a fever. Patient states that his son tested negative for COVID but his teacher tested positive for COVID. Patient denies nausea vomiting diarrhea. No shortness of breath or chest pain. Related Data Previous Rx's ?Medication ?Instructions ?Recorded phenazopyridine 100 mg tablet 100 mg PO TID 3 days #9 tabs 11/30/20 cephalexin 500 mg tablet 500 mg PO QID 7 days #28 tabs 06/08/22 doxycycline hyclate 100 mg tablet 100 mg PO BID 7 days #14 tabs 06/12/22 famotidine 20 mg tablet (Pepcid) 20 mg PO DAILY PRN abdominal 06/12/22 discomfort #30 tabs prednisone 20 mg tablet 40 mg (2 x 20 mg) PO DAILY 5 days 06/12/22 #10 tabs ibuprofen 600 mg tablet 600 mg PO TID PRN fever or pain 07/05/23 #20 tabs cyclobenzaprine 10 mg tablet 10 mg PO TID PRN muscle spasm #10 09/16/23 tabs cefuroxime axetil 500 mg tablet 500 mg PO BID 7 days #14 tabs 09/26/23 Allergies Allergy/AdvReac Type Severity Reaction Status Date / Time No Known Allergies Allergy Unverified 07/20/20 16:25 [No Known Allergies*] Review of Systems Review of Systems: Constitutional : No Weight loss, any of fever and chills No Night Sweats, complaining of fatigue and generalized malaise ENT/Mouth : No Hearing loss, No Ear Pain, No Nasal Congestion, No Sinus Pain, No Hoarseness, complaining of sore throat, No Rhinorrhea, No Swallowing Difficulty Eyes: No Eye Pain, No Swelling, No Redness, No Foreign Body, No Discharge, No Vision Changes Cardiovascular : No Chest Pain, No SOB, No Dyspnea on Exertion, No Orthopnea, No Edema, No Palpitations Respiratory : No Cough, No Sputum, No Wheezing, No Smoke Exposure, No Dyspnea Gastrointestinal : No Nausea, No Vomiting, No Diarrhea, No Constipation, No abdominal Pain, No Hematochezia, No Melena Genitourinary : no irregular bleeding, No Dysuria, No Urinary Frequency, No Hematuria, No Urinary Incontinence, No Urgency, No Flank Pain, No Urinary Flow Changes, No Hesitancy Musculoskeletal : No joint pain, No Myalgias, No Joint Swelling Skin : No Skin Lesions, No rash Neuro : No Weakness, No Numbness, No Paresthesias, No Loss of Consciousness, No Dizziness, No Headache Psych : No Anxiety/Panic, No Depression, No SI/HI/AH/VH, No Social Issues, Heme/Lymph: No Bruising, No Bleeding,No Lymphadenopathy Endocrine : No Polyuria, No Polydipsia, No Temperature Intolerance [facility] Past Medical History Medical History No known health problems Social History Social History Alcohol intake: never Patient Tobacco Use Status: Never used Tobacco Advance Directives: No Advance Directives Information Provided: No Physical Exam ED Vital Signs: Vital Signs - 24 hr 07/05/23 04:43 Temperature 101.6 F H Pulse Rate 104 H Respiratory Rate 18 Blood Pressure 106/66 Pulse Oximetry 94 Oxygen Delivery Method Room Air BMI result Body Mass Index 34.7 Const Other: Appearance: Alert. Oriented X3. No acute distress. Patient does have a fever, warm to touch, 101.6 F Eyes: Pupils equal, round and reactive to light. ENT: Pharynx mildly erythematous, no white exudates Neck: Normal inspection. Neck supple. No lymph nodes noted. No crepitus CVS: Normal heart rate and rhythm. Pulses normal. Normal S1 and S2 Respiratory: No respiratory distress. Breath sounds normal. No Wheezing. No rales Abdomen: Soft and nontender. No rigidity. No distention. Skin: Skin warm and dry. Normal skin color. Normal skin turgor. Extremities: No lower extremity edema. No Lacerations. No Rash Neuro: Oriented X 3. No motor deficit. No sensory deficit. Moving all extremities. No slurred speech. CN 2 through 12 grossly intact Psych: calm, cooperative, normal affect Medications Administered Discontinued Medications Generic Name Dose Route Start Last Admin Trade Name Freq PRN Reason Stop Dose Admin Acetaminophen 975 mg 07/05/23 04:51 07/05/23 04:58 Acetaminophen 325 Mg Tablet PO 07/05/23 04:52 975 mg ONCE ONE Administration Dexamethasone Sodium Phosphate 6 mg 07/05/23 04:51 07/05/23 04:58 Dexamethasone Sod Phosphate 4 Mg/Ml Vial IVPUSH 07/05/23 04:52 6 mg ONCE ONE Administration Lidocaine HCl 15 ml 07/05/23 04:51 07/05/23 04:58 Lidocaine Hcl Viscous 2 % 15 Ml Solution MUCOUS MEM 07/05/23 04:52 15 ml ONCE ONE Administration Medical Decision Making Medical Decision Making MDM Narrative: -for symptomatic relief, patient receiving oral Decadron and viscous lidocaine, also getting Tylenol p.o. -all of patient's labs pending -patient tested negative for COVID-19. Also, tested negative for influenza and strep. Patient likely has a viral illness. However, patient may be in there the stages of COVID and stool testing negative. -patient's oxygen saturation within normal limits. Differential Diagnosis Differential Diagnoses: The differential diagnosis associated with the presentation includes (Viral URI, COVID, influenza, strep) Lab Data Labs: Lab Results 07/05/23 07/05/23 Range/Units 04:48 05:02 Influenza Type A (PCR) NEGATIVE (Negative) Influenza Type B (PCR) NEGATIVE (Negative) RSV RNA Qual (PCR) NEGATIVE (Negative) SARS-CoV-2 RNA (RT-PCR) NEGATIVE (Negative) S. pyogenes GrpA ANA Negative (Negative) Discharge Plan Discharge Clinical Impression: Viral illness Patient Disposition: Home, Self-Care Instructions: Viral Syndrome (ED) Additional Instructions: Please follow-up with your primary care physician tomorrow. If you have any worsening or new symptoms, please return to the emergency room or call 911 Prescriptions: New ibuprofen 600 mg tablet 600 mg PO TID PRN (Reason: fever or pain) Qty: 20 0RF No Action phenazopyridine 100 mg tablet 100 mg PO TID 3 Days Qty: 9 0RF cephalexin 500 mg tablet 500 mg PO QID 7 Days Qty: 28 0RF prednisone 20 mg tablet 40 mg PO DAILY 5 Days Qty: 10 0RF famotidine [Pepcid] 20 mg tablet 20 mg PO DAILY PRN (Reason: abdominal discomfort) Qty: 30 0RF doxycycline hyclate 100 mg tablet 100 mg PO BID 7 Days Qty: 14 0RF cefuroxime axetil 500 mg tablet 500 mg PO BID 7 Days Qty: 14 0RF cyclobenzaprine 10 mg tablet 10 mg PO TID PRN (Reason: muscle spasm) Qty: 10 0RF Stand Alone Forms: Work/School Release Interventions: ED Discharge Assessment Last Done: 07/05/23 06:00 Discharge Date/Time: 07/05/23 06:01 Print Language: Romanian
[2023-07-05] MEDS: dexAMETHasone sod phosphate 4 MG/ML VIAL 6 MG IVPUSH (04:58)
[2023-07-05] MEDS: Lidocaine HCl Viscous 2 % 15 ML SOLUTION MUCOUS MEM (04:58)
[2023-07-05] MEDS: Acetaminophen 325 MG TABLET 975 MG PO (04:58)
[2023-07-05 05:19] LABS: IDNOW Serial# 6674DD1D; Strep A Nucleic Acid Negative (Negative)
[2023-07-05 05:29] LABS: Influenza A PCR NEGATIVE (Negative); Influenza B PCR NEGATIVE (Negative); Resp Syncy Virus RNA Qual PCR NEGATIVE (Negative); SARS COV2 PCR INHOUSE NEGATIVE (Negative)
[2023-07-05 05:57] VITALS: BP 91/50; PULSE 99; RESP 18; TEMP 37.2; O2SAT 95
== END 2023-07-05 06:01 | disposition home or self-care (01) ==
PROVIDERS: Emergency Provider Emergency Medicine
DX: B34.9 Viral infection, unspecified (principal); J02.9 Acute pharyngitis, unspecified; Z20.822 Contact with and (suspected) exposure to COVID-19; Z20.828 Contact with and (suspected) exposure to other viral communicable diseases
CPT/HCPCS: 0241U; 87651; 96374; 99284; J1100

== ENCOUNTER 2023-09-16 02:55 | Emergency (ER) | payer OTHER, SELFPAY ==
[2023-09-16 02:58] VITALS: BP 115/79; PULSE 79; RESP 20; TEMP 36.5; O2SAT 98; BMI 34.5
[2023-09-16 03:21] VITALS: BP 135/83; PULSE 78; RESP 16; TEMP 36.4; O2SAT 98
--- NOTE | 2023-09-16 03:30 | ED.BACK ---
HPI - Back Pain/Injury General Chief Complaint: Back Pain/Injury Stated Complaint: Back spasm Time Seen by Provider: 09/16/23 03:25 Source: patient Mode of arrival: ambulatory Limitations: no limitations History of Present Illness HPI Narrative: Patient comes to the emergency room complaining of right-sided upper middle and back pain. Patient states it started yesterday. Patient states that the muscle spasms have gradually been getting worse. Patient denies any injury. Related Data Previous Rx's Medication Instructions Recorded phenazopyridine 100 mg tablet 100 mg PO TID 3 days #9 tabs 11/30/20 cephalexin 500 mg tablet 500 mg PO QID 7 days #28 tabs 06/08/22 doxycycline hyclate 100 mg tablet 100 mg PO BID 7 days #14 tabs 06/12/22 famotidine 20 mg tablet (Pepcid) 20 mg PO DAILY PRN abdominal 06/12/22 discomfort #30 tabs prednisone 20 mg tablet 40 mg (2 x 20 mg) PO DAILY 5 days 06/12/22 #10 tabs ibuprofen 600 mg tablet 600 mg PO TID PRN fever or pain 07/05/23 #20 tabs cyclobenzaprine 10 mg tablet 10 mg PO TID PRN muscle spasm #10 09/16/23 tabs Allergies Allergy/AdvReac Type Severity Reaction Status Date / Time No Known Allergies Allergy Unverified 07/20/20 16:25 [No Known Allergies*] Review of Systems Review of Systems: Constitutional : No Weight loss, No Fever, No Chills, No Night Sweats, No Fatigue, No Malaise ENT/Mouth : No Hearing loss, No Ear Pain, No Nasal Congestion, No Sinus Pain, No Hoarseness, No sore throat, No Rhinorrhea, No Swallowing Difficulty Eyes: No Eye Pain, No Swelling, No Redness, No Foreign Body, No Discharge, No Vision Changes Cardiovascular : No Chest Pain, No SOB, No Dyspnea on Exertion, No Orthopnea, No Edema, No Palpitations Respiratory : No Cough, No Sputum, No Wheezing, No Smoke Exposure, No Dyspnea Gastrointestinal : No Nausea, No Vomiting, No Diarrhea, No Constipation, No abdominal Pain, No Hematochezia, No Melena Genitourinary : no irregular bleeding, No Dysuria, No Urinary Frequency, No Hematuria, No Urinary Incontinence, No Urgency, No Flank Pain, No Urinary Flow Changes, No Hesitancy Musculoskeletal : Complaining of muscle spasms on the right side of the neck, upper middle and lower back. No joint pain, No Myalgias, No Joint Swelling Skin : No Skin Lesions, No rash Neuro : No Weakness, No Numbness, No Paresthesias, No Loss of Consciousness, No Dizziness, No Headache Psych : No Anxiety/Panic, No Depression, No SI/HI/AH/VH, No Social Issues, Heme/Lymph: No Bruising, No Bleeding,No Lymphadenopathy Endocrine : No Polyuria, No Polydipsia, No Temperature Intolerance [facility] Past Medical History Medical History No known health problems Social History Social History Alcohol intake: never Patient Tobacco Use Status: Never used Tobacco Smoked in Last 30 Days: No Use of substances other than those prescribed or required for medical reasons: No Advance Directives: No Advance Directives Information Provided: Yes Physical Exam Vital Signs: Vital Signs: Last Vital Signs Temp 97.6 F 09/16/23 03:21 Pulse 78 09/16/23 03:21 Resp 16 09/16/23 03:21 BP 135/83 09/16/23 03:21 Pulse Ox 98 09/16/23 03:21 O2 Del Method Room Air 09/16/23 03:21 BMI result Body Mass Index 34.5 Const: Other: Appearance: Alert. Oriented X3. No acute distress. Eyes: Pupils equal, round and reactive to light. ENT: Pharynx normal. Neck: Normal inspection. Neck supple. No lymph nodes noted. No crepitus CVS: Normal heart rate and rhythm. Pulses normal. Normal S1 and S2 Respiratory: No respiratory distress. Breath sounds normal. No Wheezing. No rales Abdomen: Soft and nontender. No rigidity. No distention. Back: Pain to palpation over the right side of the trapezoid muscle, middle and lower back. No flank pain. Patient is able to flex and extend the neck without any difficulty Skin: Skin warm and dry. Normal skin color. Normal skin turgor. Extremities: No lower extremity edema. No Lacerations. No Rash Neuro: Oriented X 3. No motor deficit. No sensory deficit. Moving all extremities. No slurred speech. CN 2 through 12 grossly intact Psych: calm, cooperative, normal affect Medications Administered Discontinued Medications Generic Name Dose Route Start Last Admin Trade Name Antonina PRN Reason Stop Dose Admin Ketorolac Tromethamine 60 mg 09/16/23 03:29 09/16/23 03:42 Ketorolac Tromethamine 60 Mg/2 Ml Vial IM 09/16/23 03:30 60 mg ONCE ONE Administration Medical Decision Making Medical Decision Making [facility] Narrative: -I discussed the physical exam with the patient, patient has musculoskeletal pain. -the patient was waiting for his ketorolac IM injection, patient was playing on the phone, comfortably. Patient accidentally dropped his phone to the floor and was able to get out of bed, pick it up, put himself back in bed -patient received 1 dose of ketorolac IM. I was informed by the patient's nurse the patient had a brief vasovagal reaction, patient became dizzy right after his IM injection, patient recovered uneventfully Differential Diagnosis Differential Diagnoses: The differential diagnosis associated with the presentation includes (Musculoskeletal pain, contusion) Discharge Plan Discharge Clinical Impression: Musculoskeletal pain Patient Disposition: Home, Self-Care Instructions: Musculoskeletal Pain (ED) Additional Instructions: Do not take the muscle relaxant before driving or going to work. Please follow-up with your primary care physician tomorrow. If you have any worsening or new symptoms, please return to the emergency room or call 911 Prescriptions: New cyclobenzaprine 10 mg tablet 10 mg PO TID PRN (Reason: muscle spasm) Qty: 10 0RF No Action phenazopyridine 100 mg tablet 100 mg PO TID 3 Days Qty: 9 0RF cephalexin 500 mg tablet 500 mg PO QID 7 Days Qty: 28 0RF prednisone 20 mg tablet 40 mg PO DAILY 5 Days Qty: 10 0RF famotidine [Pepcid] 20 mg tablet 20 mg PO DAILY PRN (Reason: abdominal discomfort) Qty: 30 0RF doxycycline hyclate 100 mg tablet 100 mg PO BID 7 Days Qty: 14 0RF ibuprofen 600 mg tablet 600 mg PO TID PRN (Reason: fever or pain) Qty: 20 0RF Stand Alone Forms: Work/School Release
[2023-09-16] MEDS: Ketorolac Tromethamine 60 MG/2 ML VIAL IM (03:42)
--- NOTE | 2023-09-16 03:52 | PC.NURSE ---
Patient informed this RN that 5 min after receiving Toradol injection he started experiencing dizziness, headache. Vital signs checked P 55, RR 20, BP 87/54, O2 Sat 96% RA. Dr. Diamond informed, no new orders at this time.
--- NOTE | 2023-09-16 04:04 | PC.NURSE ---
Patient reports right sided neck and upper back resolved after receiving Toradol IM. Patient reports dizziness and headache resolved. BP 97/66, P 57, O2 Sat 99%RA.
--- NOTE | 2023-09-16 04:17 | PC.NURSE ---
BP 100/68, P 54 patient endorses no further c/o headache/ back or neck pain.
[2023-09-16 04:18] VITALS: BP 100/68; PULSE 54; RESP 16; TEMP 36.8; O2SAT 97
[2023-09-16 04:27] VITALS: BP 103/66; PULSE 56; RESP 16; O2SAT 97
== END 2023-09-16 04:43 | disposition home or self-care (01) ==
PROVIDERS: Emergency Provider Emergency Medicine; PCP Pediatrics
DX: M79.18 Myalgia, other site (principal); M62.830 Muscle spasm of back
CPT/HCPCS: 96372; 99284; J1885

== ENCOUNTER 2023-09-26 02:14 | Emergency (ER) | payer OTHER, SELFPAY ==
[2023-09-26 02:20] VITALS: BP 109/78; PULSE 88; RESP 16; TEMP 36.5; O2SAT 95; BMI 34.7
[2023-09-26 02:43] LABS: IDNOW Serial# 08D9AD1C; Strep A Nucleic Acid Positive (Negative)
--- NOTE | 2023-09-26 02:49 | ED.URI ---
HPI - URI/Sore Throat General Chief Complaint: Upper Respiratory Symptoms Stated Complaint: throat and ear pain Time Seen by Provider: 09/26/23 02:49 Source: patient Mode of arrival: ambulatory Limitations: no limitations History of Present Illness HPI Narrative: Patient complaining of sore throat for last 3 days painful to swallow with scratchy feeling no fever had some chills also has complaining of ear bilateral specially when he swallows no cough no shortness of breath Related Data Previous Rx's Medication Instructions Recorded phenazopyridine 100 mg tablet 100 mg PO TID 3 days #9 tabs 11/30/20 cephalexin 500 mg tablet 500 mg PO QID 7 days #28 tabs 06/08/22 doxycycline hyclate 100 mg tablet 100 mg PO BID 7 days #14 tabs 06/12/22 famotidine 20 mg tablet (Pepcid) 20 mg PO DAILY PRN abdominal 06/12/22 discomfort #30 tabs prednisone 20 mg tablet 40 mg (2 x 20 mg) PO DAILY 5 days 06/12/22 #10 tabs ibuprofen 600 mg tablet 600 mg PO TID PRN fever or pain 07/05/23 #20 tabs cyclobenzaprine 10 mg tablet 10 mg PO TID PRN muscle spasm #10 09/16/23 tabs cefuroxime axetil 500 mg tablet 500 mg PO BID 7 days #14 tabs 09/26/23 Allergies Allergy/AdvReac Type Severity Reaction Status Date / Time No Known Allergies Allergy Unverified 07/20/20 16:25 [No Known Allergies*] Review of Systems Review of Systems: Yes all other systems are reviewed and are negative PMFSH Past Medical History Medical History No known health problems Social History Alcohol intake: never Patient Tobacco Use Status: Never used Tobacco Physical Exam Vital Signs: Vital Signs: Last Vital Signs Temp 97.7 F 09/26/23 02:20 Pulse 88 09/26/23 02:20 Resp 16 09/26/23 02:20 BP 109/78 09/26/23 02:20 Pulse Ox 95 09/26/23 02:20 O2 Del Method Room Air 09/26/23 02:20 BMI result Body Mass Index 34.7 Appearance: Alert. Oriented X3. No acute distress. ENT: Pharynx erythematous no exudate Oral Mucosa moist tympanic membrane intact normal color bilateral Neck: Normal inspection. Neck supple. CVS: Normal heart rate and rhythm. Pulses normal. Respiratory: No respiratory distress. Equal air entry bilateral, Skin: Skin warm and dry. Neuro: Oriented X 3. Medical Decision Making Lab Data MDM Lab Attestation statement: I reviewed the patient's lab results. Labs: Lab Results 09/26/23 Range/Units 02:35 S. pyogenes GrpA ANA Positive A (Negative) Discharge Plan Discharge Clinical Impression: Acute streptococcal pharyngitis Patient Disposition: Home, Self-Care Instructions: Strep Throat (ED) Additional Instructions: Take antibiotic as prescribed Use saline gargles/cough drops for pain Prescriptions: New cefuroxime axetil 500 mg tablet 500 mg PO BID 7 Days Qty: 14 0RF No Action phenazopyridine 100 mg tablet 100 mg PO TID 3 Days Qty: 9 0RF cephalexin 500 mg tablet 500 mg PO QID 7 Days Qty: 28 0RF prednisone 20 mg tablet 40 mg PO DAILY 5 Days Qty: 10 0RF famotidine [Pepcid] 20 mg tablet 20 mg PO DAILY PRN (Reason: abdominal discomfort) Qty: 30 0RF doxycycline hyclate 100 mg tablet 100 mg PO BID 7 Days Qty: 14 0RF ibuprofen 600 mg tablet 600 mg PO TID PRN (Reason: fever or pain) Qty: 20 0RF cyclobenzaprine 10 mg tablet 10 mg PO TID PRN (Reason: muscle spasm) Qty: 10 0RF
[2023-09-26] MEDS: cefuroxime axetiL 500 MG TABLET PO (02:56)
[2023-09-26 02:58] LABS: COVID-19 Test Negative (Negative); IDNOW Serial# BCCEAD1C
== END 2023-09-26 03:10 | disposition home or self-care (01) ==
PROVIDERS: Emergency Provider Internal Medicine
DX: J02.0 Streptococcal pharyngitis (principal); R07.0 Pain in throat; H92.03 Otalgia, bilateral; Z11.52 Encounter for screening for COVID-19; Z20.822 Contact with and (suspected) exposure to COVID-19; Z79.899 Other long term (current) drug therapy
CPT/HCPCS: 87635; 87651; 99283; 99284

== ENCOUNTER 2024-01-26 21:23 | Emergency (ER) | payer OTHER, SELFPAY ==
--- NOTE | ~2024-01-26 | CT_ITS ---
EXAMINATION: CT ABDOMEN AND PELVIS WITHOUT CONTRAST CLINICAL INFORMATION: Left lower quadrant pain, has had appendectomy COMPARISON: 11/30/2020 TECHNIQUE: Multidetector volumetric imaging was performed from the superior aspect of the liver through the pubic symphysis. Sagittal and coronal reformatted images were obtained on the technologist's workstation. This CT examination was performed using dose optimization techniques as appropriate, variously including the following: *Automated exposure control *Adjustment of mA and/or kV according to patient size (this includes techniques or standardized protocols for targeted exams where dose is matched to indication/reason for exam; i.e. extremities or head) *Use of iterative reconstruction technique DLP: 715 mGy-cm FINDINGS: LUNG BASES: The visualized lung bases are unremarkable. LIVER, GALLBLADDER, AND BILIARY TREE: The liver is normal in size, shape, and attenuation. No focal hepatic lesion or biliary ductal dilatation is identified on this noncontrast exam. The gallbladder is unremarkable with no evidence of radiopaque gallstones, gallbladder wall thickening, or obvious pericholecystic inflammatory changes. PANCREAS: Unremarkable. SPLEEN: Unremarkable. ADRENAL GLANDS: Unremarkable. KIDNEYS AND URETERS: No hydronephrosis or obstructing calculus bilaterally. BLADDER: Minimally distended and not well evaluated. GASTROINTESTINAL TRACT: No evidence of bowel obstruction or significant wall thickening. Patient is status post appendectomy. No free fluid or free air is seen. ABDOMINAL WALL: No significant hernia is appreciated. LYMPH NODES: Scattered subcentimeter mesenteric and retroperitoneal lymph nodes, nonspecific. VASCULAR: Unremarkable. PELVIC VISCERA: Unremarkable. OSSEOUS STRUCTURES: Unremarkable. CT/CT abdomen pelvis wo IV con IMPRESSION: No acute findings identified in the abdomen/pelvis.
[2024-01-26 21:36] VITALS: BP 127/90; PULSE 69; RESP 16; TEMP 36.7; BMI 33.2
[2024-01-26 22:12] LABS: MANUAL DIFF FLAG NO
[2024-01-26 22:22] LABS: Basophils Absolute Auto 0.1 X10*3/uL (0.0-0.2); Basophils Percent Auto 0.5 % (0-2); Eosinophils Absolute Auto 0.4 X10*3/uL (0.0-0.4); Eosinophils Percent Auto 3.2 % (0-4); Hematocrit 41.3 % (42.0-52.0); Hemoglobin 13.5 g/dl (14.0-18.0); Imm Gran Abs Auto 0.03 X10*3/uL (0.00-0.03); Imm Gran Pct Auto 0.2 % (0.0-0.4); Lymphocytes Absolute Auto 3.2 X10*3/uL (1.2-4.9); Lymphocytes Percent Auto 25.7 % (20-40); Mean Corpuscular HGB Conc 32.7 g/dl (31.0-36.0); Mean Corpuscular Hemoglobin 27.7 pg (27.0-33.0); Mean Corpuscular Volume 84.6 fL (80.0-98.0); Mean Platelet Volume 10.1 fL (9.4-12.4); Monocytes Absolute Auto 1.1 X10*3/uL (0.1-1.2); Monocytes Percent Auto 9.1 % (2-11); Neutrophils Absolute Auto 7.6 x10*3/uL (2.0-8.3); Neutrophils Percent Auto 61.3 % (45-73); Platelet Count 382 X10*3/uL (160-400); Red Blood Count 4.88 X10*6/uL (4.60-5.80); Red Cell Distribution Width 13.4 % (11.0-16.0); White Blood Count 12.4 X10*3/uL (4.8-10.8)
[2024-01-26 22:35] LABS: Anion Gap 13 (12-20); Blood Urea Nitrogen 20 mg/dL (9-16); Calcium 9.6 mg/dL (8.4-10.2); Carbon Dioxide 27 mmol/L (22-29); Chloride 105 mmol/L (96-108); Creatinine Clr Calc Pharmacy 138.4; Estimated Glomerular Filt Rate > 60; Glucose Random 115 mg/dL (60-115); Potassium 3.8 mmol/L (3.3-5.1); Sodium 141 mmol/L (135-145)
[2024-01-26 23:01] LABS: Influenza A PCR NEGATIVE (Negative); Influenza B PCR NEGATIVE (Negative); Resp Syncy Virus RNA Qual PCR NEGATIVE (Negative); SARS COV2 PCR INHOUSE NEGATIVE (Negative)
[2024-01-27 00:52] VITALS: BP 123/86; PULSE 65; RESP 18; TEMP 36.9; O2SAT 98
--- NOTE | 2024-01-27 01:44 | ED_ITS ---
HPI - Abdominal Pain General Chief Complaint: Abdominal Pain Stated Complaint: abd pain x3 days Time Seen by Provider: 01/27/24 00:51 Source: patient Mode of arrival: ambulatory History of Present Illness HPI narrative: 28-year-old male with sick contact from his son states he has had mid abdominal to left-sided abdominal discomfort for 3 days denies any fevers or chills but has had body aches and vomited yesterday. Patient is status post appendectomy. Related Data Previous Rx's Medication Instructions Recorded phenazopyridine 100 mg tablet 100 mg PO TID 3 days #9 tabs 11/30/20 cephalexin 500 mg tablet 500 mg PO QID 7 days #28 tabs 06/08/22 doxycycline hyclate 100 mg tablet 100 mg PO BID 7 days #14 tabs 06/12/22 famotidine 20 mg tablet (Pepcid) 20 mg PO DAILY PRN abdominal 06/12/22 discomfort #30 tabs prednisone 20 mg tablet 40 mg (2 x 20 mg) PO DAILY 5 days 06/12/22 #10 tabs ibuprofen 600 mg tablet 600 mg PO TID PRN fever or pain 07/05/23 #20 tabs cyclobenzaprine 10 mg tablet 10 mg PO TID PRN muscle spasm #10 09/16/23 tabs cefuroxime axetil 500 mg tablet 500 mg PO BID 7 days #14 tabs 09/26/23 Allergies Allergy/AdvReac Type Severity Reaction Status Date / Time No Known Allergies Allergy Unverified 07/20/20 16:25 [No Known Allergies*] Review of Systems Review of Systems Pertinent positives and negatives as stated in HPI [facility] Past Medical History Source: nursing notes reviewed Medical History No known health problems Social History Social History Alcohol intake: never Patient Tobacco Use Status: Never used Tobacco Advance Directives: No Advance Directives Information Provided: No Physical Exam ED Vital Signs: Vital Signs - 24 hr 01/26/24 21:36 01/27/24 00:52 Temperature 98.1 F 98.4 F Pulse Rate 69 65 Respiratory Rate 16 18 Blood Pressure 127/90 H 123/86 Pulse Oximetry 98 Oxygen Delivery Method Room Air Room Air BMI result Body Mass Index 33.2 VITAL SIGNS: Reviewed. GENERAL: Well developed, well nourished, in no acute distress. HEAD: Normocephalic/atraumatic EYES: PERRLA, EOMI LUNGS: Normal breath sounds. No adventitious sounds or accessory muscle use. SpO2<98> CARDIOVASCULAR: Regular rate and rhythm without noted murmurs ABDOMEN: Soft, non-tender, non-distended with bowel sounds. MUSCULOSKELETAL: No tenderness, deformities, or effusions noted on gross inspection. EXTREMITIES: No cyanosis, clubbing or edema. SKIN: Inspection of the skin reveals no rashes NEUROLOGIC: Alert and oriented x 4. Strength and sensation to light touch were grossly intact x 4. Medical Decision Making Medical Decision Making [facility] Narrative: 28-year-old male with history and clinical presentation, DDX: Viral gastroenteritis, constipation, low clinical suspicion for renal colic and no clinical suspicion for UTI. On review of investigations patient has a chronically stable non infectious leukocytosis, he is afebrile and abdominal exam is very benign and patient is status post appendectomy. There is a chronic normocytic anemia and no thrombocytopenia. Demonstrated indices are negative for SARAH/electrolyte or liver enzyme derangements. Viral testing is negative for influenza/RSV/COVID- 19. Signed out to Dr Encinas - f/u CT scan Differential Diagnosis Differential Diagnoses: The differential diagnosis associated with the presentation includes Please see the discussion above Admission/Observation Consideration of admission/observation: Escalation of care including admission/observation considered Please see the discussion above Lab Data [facility] Lab Attestation statement: I reviewed the patient's lab results. Please see the discussion above 01/26/24 22:04 01/26/24 22:04 Labs: Lab Results 01/26/24 Range/Units 22:04 WBC 12.4 H (4.8-10.8) X10*3/uL RBC 4.88 (4.60-5.80) X10*6/uL Hgb 13.5 L (14.0-18.0) g/dl Hct 41.3 L (42.0-52.0) % MCV 84.6 (80.0-98.0) fL MCH 27.7 (27.0-33.0) pg MCHC 32.7 (31.0-36.0) g/dl RDW 13.4 (11.0-16.0) % Plt Count 382 (160-400) X10*3/uL MPV 10.1 (9.4-12.4) fL Immature Gran % (Auto) 0.2 (0.0-0.4) % Neut % (Auto) 61.3 (45-73) % Lymph % (Auto) 25.7 (20-40) % Butler % (Auto) 9.1 (2-11) % Eos % (Auto) 3.2 (0-4) % Baso % (Auto) 0.5 (0-2) % Lymph # (Auto) 3.2 (1.2-4.9) X10*3/uL Butler # (Auto) 1.1 (0.1-1.2) X10*3/uL Eos # (Auto) 0.4 (0.0-0.4) X10*3/uL Baso # (Auto) 0.1 (0.0-0.2) X10*3/uL Abs Immat Gran (auto) 0.03 (0.00-0.03) X10*3/uL Absolute Neuts (auto) 7.6 (2.0-8.3) x10*3/uL Absolute Nucleated RBC 0.000 (0.0-0.012) X10*3/uL Nucleated RBC % (auto) 0.0 (0.0-0.2) /100WBC Sodium 141 (135-145) mmol/L Potassium 3.8 (3.3-5.1) mmol/L Chloride 105 (96-108) mmol/L Carbon Dioxide 27 (22-29) mmol/L Anion Gap 13 (12-20) BUN 20 H (9-16) mg/dL Creatinine 0.85 (0.5-1.4) mg/dL Estim Creat Clear Calc 138.4 Estimated GFR > 60 Random Glucose 115 (60-115) mg/dL Calcium 9.6 (8.4-10.2) mg/dL Influenza Type A (PCR) NEGATIVE (Negative) Influenza Type B (PCR) NEGATIVE (Negative) RSV RNA Qual (PCR) NEGATIVE (Negative) SARS-CoV-2 RNA (RT-PCR) NEGATIVE (Negative) Radiology Impression Discussion of test interpretation with radiology: I have reviewed the radiologist's reading. Radiologist Impression: Please see the discussion above External Record Review External record reviewed: Outpatient record and Prior outpatient labs Critical Care Time Critical Care Time Critical Care Time: Yes Total Critical Care Time: 30 Attestation: I personally attest to this time spent taking care of the patient. Discharge Plan Discharge Clinical Impression: Gastroenteritis Patient Disposition: Home, Self-Care Instructions: Gastroenteritis (ED) Additional Instructions: Follow-up with your primary care doctor. Continue to drink plenty of water and use Tylenol and ibuprofen as needed for abdominal discomfort. Prescriptions: No Action phenazopyridine 100 mg tablet 100 mg PO TID 3 Days Qty: 9 0RF cephalexin 500 mg tablet 500 mg PO QID 7 Days Qty: 28 0RF prednisone 20 mg tablet 40 mg PO DAILY 5 Days Qty: 10 0RF famotidine [Pepcid] 20 mg tablet 20 mg PO DAILY PRN (Reason: abdominal discomfort) Qty: 30 0RF doxycycline hyclate 100 mg tablet 100 mg PO BID 7 Days Qty: 14 0RF ibuprofen 600 mg tablet 600 mg PO TID PRN (Reason: fever or pain) Qty: 20 0RF cefuroxime axetil 500 mg tablet 500 mg PO BID 7 Days Qty: 14 0RF cyclobenzaprine 10 mg tablet 10 mg PO TID PRN (Reason: muscle spasm) Qty: 10 0RF
[2024-01-27 03:06] VITALS: BP 123/86; PULSE 63; RESP 18; TEMP 36.9; O2SAT 100
== END 2024-01-27 03:08 | disposition home or self-care (01) ==
PROVIDERS: Student in an Organized Health Care Education/Training Program; Emergency Provider Internal Medicine
DX: K52.9 Noninfective gastroenteritis and colitis, unspecified (principal); R10.30 Lower abdominal pain, unspecified; Z11.52 Encounter for screening for COVID-19; Z20.822 Contact with and (suspected) exposure to COVID-19; Z79.899 Other long term (current) drug therapy
CPT/HCPCS: 0241U; 36415; 74176; 80048; 85025; 99283; 99284

== ENCOUNTER 2024-12-26 23:58 | Emergency (ER) | payer SELFPAY ==
--- NOTE | ~2024-12-26 | XR_ITS ---
CLINICAL HISTORY: pain post heavy lifting 3 view right shoulder Comparison: None Findings: Calcification adjacent to proximal humerus may be due to small avulsion fracture fragments. Calcific tendinitis is also considered particularly involving supraspinatus. Likely small effusion. No dislocation. Atelectasis of the imaged lungs in the [id number]. No erosions. No radiopaque foreign body. IMPRESSION: 1. Small calcifications adjacent to the humerus are nonspecific and may be due to small avulsions or calcific tendinitis. Consider outpatient MRI, if clinically indicated. 2. No dislocation in the acute setting. This document has been electronically signed by: Osvaldo Barnett MD on 12/27/2024 00:57:18
[2024-12-27 00:01] VITALS: BP 116/77; PULSE 66; RESP 16; TEMP 36.2; O2SAT 98; BMI 32.4
--- NOTE | 2024-12-27 02:09 | ED.EXTPRO ---
HPI - Extremity Problem General Chief complaint: Extremity Injury, Upper Stated complaint: shoulder inj Time Seen by Provider: 12/27/24 00:47 Source: patient Mode of arrival: ambulatory Limitations: no limitations History of Present Illness ED Provider: Dr. Andria Diamond HPI Narrative: Patient comes to the emergency room complaining of right shoulder pain. Patient states that he was playing with his kids, patient states that he heard something popping. Aniyah next day he admits that he has been lifting heavy stuff. Patient reports that this morning he woke up with right shoulder pain. Patient denies any numbness or tingling. Patient states that he had no relief with ibuprofen. Patient denies weakness in extremity Related Data Previous Rx's ?Medication ?Instructions ?Recorded phenazopyridine 100 mg tablet 100 mg PO TID 3 days #9 tabs 11/30/20 cephalexin 500 mg tablet 500 mg PO QID 7 days #28 tabs 06/08/22 doxycycline hyclate 100 mg tablet 100 mg PO BID 7 days #14 tabs 06/12/22 famotidine 20 mg tablet (Pepcid) 20 mg PO DAILY PRN abdominal 06/12/22 discomfort #30 tabs prednisone 20 mg tablet 40 mg (2 x 20 mg) PO DAILY 5 days 06/12/22 #10 tabs ibuprofen 600 mg tablet 600 mg PO TID PRN fever or pain 07/05/23 #20 tabs cyclobenzaprine 10 mg tablet 10 mg PO TID PRN muscle spasm #10 09/16/23 tabs cefuroxime axetil 500 mg tablet 500 mg PO BID 7 days #14 tabs 09/26/23 naproxen 500 mg tablet 500 mg PO BID #14 tabs 12/27/24 Allergies Allergy/AdvReac Type Severity Reaction Status Date / Time No Known Allergies Allergy Verified 12/27/24 00:04 [No Known Allergies*] Review of Systems Review of Systems: Constitutional : No Weight loss, No Fever, No Chills, No Night Sweats, No Fatigue, No Malaise ENT/Mouth : No Hearing loss, No Ear Pain, No Nasal Congestion, No Sinus Pain, No Hoarseness, No sore throat, No Rhinorrhea, No Swallowing Difficulty Eyes: No Eye Pain, No Swelling, No Redness, No Foreign Body, No Discharge, No Vision Changes Cardiovascular : No Chest Pain, No SOB, No Dyspnea on Exertion, No Orthopnea, No Edema, No Palpitations Respiratory : No Cough, No Sputum, No Wheezing, No Smoke Exposure, No Dyspnea Gastrointestinal : No Nausea, No Vomiting, No Diarrhea, No Constipation, No abdominal Pain, No Hematochezia, No Melena Genitourinary : no irregular bleeding, No Dysuria, No Urinary Frequency, No Hematuria, No Urinary Incontinence, No Urgency, No Flank Pain, No Urinary Flow Changes, No Hesitancy Musculoskeletal : Complaining of right shoulder pain, believes he heard something popping Skin : No Skin Lesions, No rash Neuro : No Weakness, No Numbness, No Paresthesias, No Loss of Consciousness, No Dizziness, No Headache Psych : No Anxiety/Panic, No Depression, No SI/HI/AH/VH, No Social Issues, Heme/Lymph: No Bruising, No Bleeding,No Lymphadenopathy Endocrine : No Polyuria, No Polydipsia, No Temperature Intolerance PMFSH Past Medical History Medical History No known health problems Social History Social History Alcohol intake: never Patient Tobacco Use Status: Never used Tobacco Smoked in Last 30 Days: No Use of substances other than those prescribed or required for medical reasons: No Advance Directives: No Advance Directives Information Provided: Yes Do you have a plan to hurt others: No Plan Physical Exam Vital Signs: Vital Signs: Last Vital Signs Temp 97.1 F 12/27/24 00:01 Pulse 66 12/27/24 00:01 Resp 16 12/27/24 00:01 BP 116/77 12/27/24 00:01 Pulse Ox 98 12/27/24 00:01 O2 Del Method Room Air 12/27/24 00:01 BMI result Body Mass Index 32.4 Const: Other: Appearance: Alert. Oriented X3. No acute distress. Eyes: Pupils equal, round and reactive to light. ENT: Pharynx normal. Neck: Normal inspection. Neck supple. No lymph nodes noted. No crepitus CVS: Normal heart rate and rhythm. Pulses normal. Normal S1 and S2 Respiratory: No respiratory distress. Breath sounds normal. No Wheezing. No rales Abdomen: Soft and nontender. No rigidity. No distention. Skin: Skin warm and dry. Normal skin color. Normal skin turgor. Extremities: No lower extremity edema. No Lacerations. No Rash it patient unable to abduct the arm past 20 degrees. Pain to palpation over the suprascapular area on the right. Minimal pain to palpation in the anterior and lateral aspect of the actual shoulder joint Neuro: Oriented X 3. No motor deficit. No sensory deficit. Moving all extremities. No slurred speech. CN 2 through 12 grossly intact Psych: calm, cooperative, normal affect Medical Decision Making Medical Decision Making MDM Narrative: X-rays do not show any acute abnormality, possible calcific tendinitis. I discussed with the patient that if the pain does not resolve within the next 2-3 days, patient may need an MRI to rule out rotator cuff injury. Patient agrees with plan. It was offered IM and p.o. medications, patient declined. Independent Interpretation I performed an independent interpretation of an: Plain X-Ray Radiology Impression Discussion of test interpretation with radiology: I have reviewed the radiologist's reading. Radiologist Impression: Calcification adjacent to proximal humerus may be due to small avulsion fracture fragments. Calcific tendinitis is also considered particularly involving supraspinatus. Likely small effusion. No dislocation. Atelectasis of the imaged lungs in the [id number]. No erosions. No radiopaque foreign body. IMPRESSION: 1. Small calcifications adjacent to the humerus are nonspecific and may be due to small avulsions or calcific tendinitis. Consider outpatient MRI, if clinically indicated. 2. No dislocation in the acute setting. Discharge Plan Discharge Clinical Impression: Right shoulder tendinitis Patient Disposition: Home, Self-Care Instructions: Rotator Cuff Tendinitis (ED) Additional Instructions: Please follow-up with your primary care physician tomorrow. If the pain does not improve within the next 3 days. Please follow-up with your PCP, you may need a referral for physical therapy versus MRI to rule out a rotator cuff injury. If you have any worsening or new symptoms, please return to the emergency room or call 911 Prescriptions: New naproxen 500 mg tablet 500 mg PO BID Qty: 14 0RF Rx Instructions: Do not take ibuprofen with this medication. No Action phenazopyridine 100 mg tablet 100 mg PO TID 3 Days Qty: 9 0RF cephalexin 500 mg tablet 500 mg PO QID 7 Days Qty: 28 0RF prednisone 20 mg tablet 40 mg PO DAILY 5 Days Qty: 10 0RF famotidine [Pepcid] 20 mg tablet 20 mg PO DAILY PRN (Reason: abdominal discomfort) Qty: 30 0RF doxycycline hyclate 100 mg tablet 100 mg PO BID 7 Days Qty: 14 0RF ibuprofen 600 mg tablet 600 mg PO TID PRN (Reason: fever or pain) Qty: 20 0RF cefuroxime axetil 500 mg tablet 500 mg PO BID 7 Days Qty: 14 0RF cyclobenzaprine 10 mg tablet 10 mg PO TID PRN (Reason: muscle spasm) Qty: 10 0RF Stand Alone Forms: Work/School Release Print Language: Surinamese
[2024-12-27 02:20] VITALS: BP 116/77; PULSE 66; RESP 16; TEMP 36.2; O2SAT 98
== END 2024-12-27 02:21 | disposition home or self-care (01) ==
PROVIDERS: Emergency Provider Emergency Medicine
DX: M75.31 Calcific tendinitis of right shoulder (principal)
CPT/HCPCS: 73030; 99283; 99284

== ENCOUNTER → 2024-12-27 00:15 | Outpatient (BNV) | payer SELFPAY | PROVIDERS: Emergency Provider Emergency Medicine; Visit Provider Radiology Neuroradiology | DX: M25.511 Pain in right shoulder (principal) | CPT/HCPCS: 73030 ==

== ENCOUNTER → 2025-05-10 04:48 | Outpatient (BNV) | payer SELFPAY | PROVIDERS: Emergency Provider Emergency Medicine; Visit Provider Radiology Diagnostic Radiology | DX: M25.512 Pain in left shoulder (principal) | CPT/HCPCS: 73030 ==

== ENCOUNTER 2025-05-10 05:13 | Emergency (ER) | payer SELFPAY ==
--- NOTE | ~2025-05-10 | XR_ITS ---
CLINICAL HISTORY: left shoulder pain 3 view left shoulder Comparison: None provided Findings: No fractures or dislocations. No significant loss of joint space or osteophytes. Calcification adjacent to the greater tuberosity suggesting calcific tendinosis. No erosions. No radiopaque foreign body. IMPRESSION: 1. Findings suggest calcific tendinosis. This document has been electronically signed by: Tomeka Hannon MD on 05/10/2025 07:32:20
[2025-05-10 05:26] VITALS: BP 135/84; PULSE 78; RESP 20; TEMP 36.4; O2SAT 96; BMI 33.6
--- NOTE | 2025-05-10 07:11 | ED.EXTPRO ---
HPI - Extremity Problem General Chief complaint: Extremity Problem Stated complaint: left shoulder pain Time Seen by Provider: 05/10/25 07:00 Source: patient and old records reviewed Mode of arrival: ambulatory Limitations: no limitations History of Present Illness ED Provider: RAD VILLA Narrative: 29 yo male R hand dominant hx of L shoulder pain has overuse at work he woke up with sharp L shoulder pain no trauma. Hurts to move. He has had similar issues in past and has not had further workup. NO numbness, no weakness. Took Aleve [employer] that helped a little. Has never used a sling before. MD Complaint: joint pain Onset (ago): hour(s) (couple) Pain Consistency: constant Location: left and upper extremity Quality: stabbing Radiation: distal Relieving factors: immobilization Exacerbating factors: range of motion Associated symptoms: denies other symptoms Context: other Related Data Previous Rx's ?Medication ?Instructions ?Recorded phenazopyridine 100 mg tablet 100 mg PO TID 3 days #9 tabs 11/30/20 cephalexin 500 mg tablet 500 mg PO QID 7 days #28 tabs 06/08/22 doxycycline hyclate 100 mg tablet 100 mg PO BID 7 days #14 tabs 06/12/22 famotidine 20 mg tablet (Pepcid) 20 mg PO DAILY PRN abdominal 06/12/22 discomfort #30 tabs prednisone 20 mg tablet 40 mg (2 x 20 mg) PO DAILY 5 days 06/12/22 #10 tabs ibuprofen 600 mg tablet 600 mg PO TID PRN fever or pain 07/05/23 #20 tabs cyclobenzaprine 10 mg tablet 10 mg PO TID PRN muscle spasm #10 09/16/23 tabs cefuroxime axetil 500 mg tablet 500 mg PO BID 7 days #14 tabs 09/26/23 naproxen 500 mg tablet 500 mg PO BID #14 tabs 12/27/24 cyclobenzaprine 10 mg tablet 10 mg PO TID PRN muscle spasm #20 05/10/25 tabs lidocaine 5 % topical patch 1 patch topical DAILY #30 ea 05/10/25 Allergies Allergy/AdvReac Type Severity Reaction Status Date / Time No Known Allergies (No Known Allergy Verified 05/10/25 05:27 Allergies*) Review of Systems Review of Systems: Constitutional : No Fever, No Chills ENT/Mouth : No Ear Pain, No Hoarseness, No sore throat Eyes: No Eye Pain, No Swelling, No Redness, No Foreign Body Cardiovascular : No Chest Pain, No SOB Respiratory : No Cough, No Dyspnea Gastrointestinal : No Nausea, No Vomiting, No Diarrhea, No abdominal Pain Genitourinary : No Dysuria, No Hematuria Musculoskeletal : positive joint pain, No Myalgias, No Joint Swelling Skin : No Skin lacerations, No rash Neuro : No Weakness, No Numbness, No Loss of Consciousness, No Dizziness, No Headache All other systems reviewed and are negative [facility] Past Medical History Attestation statement: The following information was validated with the patient. Source: old records reviewed Medical History No known health problems Social History Social History Alcohol intake: never Patient Tobacco Use Status: Never used Tobacco Advance Directives: No Advance Directives Information Provided: Yes Do you have a plan to hurt others: No Plan Physical Exam Vital Signs: Vital Signs: Last Vital Signs Temp 97.6 F 05/10/25 07:23 Pulse 78 05/10/25 07:23 Resp 20 05/10/25 07:23 BP 135/84 05/10/25 07:23 Pulse Ox 96 05/10/25 07:23 O2 Del Method Room Air 05/10/25 07:23 BMI result Body Mass Index 33.6 Appearance: Alert. Oriented X3. No acute distress. Eyes: Pupils equal, round and reactive to light. ENT: Pharynx normal. Neck: Normal inspection. CVS: Pulses normal. Respiratory: No respiratory distress. Abdomen: Soft and nontender. Skin: Skin warm and dry. Normal skin color. Normal skin turgor. Extremities: No lower extremity edema. L shoulder ttp along humeral head, distal NV intact, pain with ROM, no rash no swelling Neuro: Oriented X 3. No motor deficit. No sensory deficit. CN2-12 intact Course Course Course Narrative: called patient at 737am with xray results left message Medical Decision Making Medical Decision Making [facility] Narrative: 29 yo male no sig PMH other than prior L shoulder pain here it was atraumatic abrupt onset no signs of infection at this time will need xray of shoulder, sling and suspect more sprain vs calcific tendonitis. Will start on PO pain control and refer to PCP. Differential Diagnosis Differential Diagnoses: The differential diagnosis associated with the presentation includes tendonitis, sprain, strain Independent Interpretation I performed an independent interpretation of an: Plain X-Ray (no fx) Radiology Impression Discussion of test interpretation with radiology: I have reviewed the radiologist's reading. External Record Review External record reviewed: Outpatient record Prescription Management I considered prescription management with: Pain Medication and Other Procedures Orthopedic Splinting/Casting Injury #1: Side: left Upper Extremity Injury Location: shoulder Upper Extremity Immobilizer: sling/shoulder immobilizer Additional Comments: NV intact Discharge Plan Discharge Clinical Impression: Acute shoulder pain, Calcific tendonitis Patient Disposition: Home, Self-Care Instructions: Shoulder Pain (ED) Additional Instructions: wear sling for 3 days but move elbow and wrist do not sleep with sling rest and ice the area or use heat whatever feels better to you please follow up with your primary care doctor return for any worsening symptoms or concerns. Prescriptions: New cyclobenzaprine 10 mg tablet 10 mg PO TID PRN (Reason: muscle spasm) Qty: 20 0RF lidocaine 5 % adhesive patch,medicated 1 patch topical DAILY Qty: 30 0RF Rx Instructions: leave on most painful area for up to 12 hrs No Action phenazopyridine 100 mg tablet 100 mg PO TID 3 Days Qty: 9 0RF cephalexin 500 mg tablet 500 mg PO QID 7 Days Qty: 28 0RF prednisone 20 mg tablet 40 mg PO DAILY 5 Days Qty: 10 0RF famotidine [Pepcid] 20 mg tablet 20 mg PO DAILY PRN (Reason: abdominal discomfort) Qty: 30 0RF doxycycline hyclate 100 mg tablet 100 mg PO BID 7 Days Qty: 14 0RF ibuprofen 600 mg tablet 600 mg PO TID PRN (Reason: fever or pain) Qty: 20 0RF cefuroxime axetil 500 mg tablet 500 mg PO BID 7 Days Qty: 14 0RF cyclobenzaprine 10 mg tablet 10 mg PO TID PRN (Reason: muscle spasm) Qty: 10 0RF naproxen 500 mg tablet 500 mg PO BID Qty: 14 0RF Rx Instructions: Do not take ibuprofen with this medication. Stand Alone Forms: Work/School Release Interventions: ED Discharge Assessment Last Done: 05/10/25 07:23 Discharge Date/Time: 05/10/25 07:24 Print Language: Niuean
[2025-05-10 07:23] VITALS: BP 135/84; PULSE 78; RESP 20; TEMP 36.4; O2SAT 96
== END 2025-05-10 07:24 | disposition home or self-care (01) ==
PROVIDERS: Emergency Provider Emergency Medicine
DX: M75.32 Calcific tendinitis of left shoulder (principal); M25.512 Pain in left shoulder
CPT/HCPCS: 73030; 99283